=== PATIENT | male | born 1940 | race Caucasian/White ===

== ENCOUNTER 2016-08-21 11:56 | Inpatient (IN) | payer MEDICARE, BC ==
[2016-08-21] MEDS ORDERED: LABETALOL HCL 5 MG/ML VIAL IV ONE ×10 (12:16→15:30)
[2016-08-21 12:46] LABS: Mean Cell Volume 74.9 fl (78-100); Mean Corpuscular Hemoglobin 22.5 pg (27-31); Mean Corpuscular Hgb Conc 30.1 g/dl (32-36); Mean Platelet Volume 9.4 fl (6.0-9.5); Neutrophil # 2.9 K/mm3 (1.3-6.0); Neutrophil % 84.3 % (42-75.0); Platelet Count 138 K/mm3 (150-450); Red Blood Count 3.15 M/mm3 (4.7-6.0); Red Cell Distribution Width 16.7 % (11.5-14.0); White Blood Count 3.5 K/mm3 (4.0-10.5)
--- NOTE | 2016-08-21 12:50 | ERNOTE ---
Chest Pain/Cardiac HPI Chief Complaint: Palpitations Time Seen by Provider: 08/21/16 12:55 Source: patient, family Exam Limitations: no limitations Immunizations: IMMUNIZATION HX Immunizations Up to Date Yes History of Influenza Vaccine Yes Hx Pneumococcal Vaccination Yes Allergies/Adverse Reactions: Allergies No Known Allergies Allergy (Verified 08/21/16 18:38) Home Medications: HOME MEDICATIONS Aspirin [Aspir 81] 81 mg PO DAILY 04/16/12 [Last Taken 08/11/14 10:00 81mg] Pravastatin Sodium [Pravachol] 20 mg PO DAILY 04/16/12 [Last Taken 12/27/14] Terazosin HCl [Hytrin] 5 mg PO HS 04/16/12 [Last Taken 12/27/14] Hydroxychloroquine Sulfate [Plaquenil] 400 mg PO DAILY 09/03/14 [Last Taken ] Vitamin B Complex [B Complex] 500 mcg PO DAILY 09/03/14 [Last Taken 12/28/14] glipiZIDE [Glucotrol] 10 mg PO BID 09/03/14 [Last Taken Unknown] Finasteride [Proscar] 5 mg PO DAILY 12/29/14 [Last Taken Unknown] Losartan Potassium [Cozaar] 50 mg PO DAILY 12/29/14 [Last Taken Unknown] Ondansetron [Zofran Odt] 4 mg PO Q6H PRN #10 tab 03/12/15 [Last Taken Unknown] Prednisone [Deltasone] 20 mg PO DAILY 08/21/16 [Last Taken Unknown] Amiodarone HCl [Cordarone] 200 mg PO DAILY #30 tablet 08/23/16 [Last Taken Unknown] Folic Acid 1 mg PO DAILY tablet 08/23/16 [Last Taken Unknown] Methotrexate Sodium [Methotrexate] 10 mg PO Fr@0900 tablet 08/23/16 [Last Taken Unknown] Multivitamins [Multivitamin Stuart] 1 cap PO DAILY capsule 08/23/16 [Last Taken Unknown] Pantoprazole Sodium [Protonix] 40 mg PO BID@0700,2100 #60 tablet. 08/23/16 [ Last Taken Unknown] glipiZIDE [Glucotrol] 10 mg PO BIDAC tablet 08/23/16 [Last Taken Unknown] Narrative: Pt began having palpitations earlier today. Was unable to get relief with rest. Timing: constant, getting worse Severity/Quality: moderate, severe, pressure Location: central, back Chest Pain Radiation: jaw Activities at Onset: none Modifying Factors - Improves: Present: rest Modifying Factors - Worsens: Present: movement Associated Symptoms: Present: shortness of breath Review of Systems - Review of Systems Constitutional: Present: fatigue. Absent: recent illness EYE: Present: no symptoms reported ENT: Present: no symptoms reported Respiratory: Present: shortness of breath Cardiology: Present: chest pain, palpitations Gastrointestinal/Abdominal: Present: nausea. Absent: vomiting, abdominal pain Genitourinary: Present: no symptoms reported Musculoskeletal: Present: no symptoms reported Neurological: Present: no symptoms reported Endocrine: Present: no symptoms reported Hematologic/Lymphatic: Present: no symptoms reported Psych: Present: no symptoms reported - Patient's Past Medical History Patient History - Medical: Anemia, Diabetes Type 2, GERD, Osteoarthritis Patient History - Cardiac/Respiratory: Atrial Fibrillation, Hypertension, Hyperlipidemia Patient History - Cancer: Colon Patient History - Surgical Procedures: Cataracts, Colon Resection, Colonoscopy, EGD, Total Knee Replacement Patient History - Other: None - Family History Mother Family History - Medical: , Anemia, Diabetes Type 1 Family History - Cardiac/Respiratory: No pertinent hx Father Family History - Medical: Family History - Cardiac/Respiratory: CVA/Stroke - Social History Living Situations: home Abuse History: No History of abuse Psych History: No pertinent hx Smoking Status: Never smoker Alcohol Use: rarely Drug Use: none - Immunizations Immunizations Up to Date: Yes Hx Pneumococcal Vaccination: Yes History of Influenza Vaccine: Yes Physical Exam - Physical Exam General Appearance: Present: wd/wn, alert, mild distress Eye Exam: Normal inspection: bilateral Ears, Nose, Throat: Present: normal ENT inspection Neck: Present: normal inspection, nontender Respiratory: Present: normal breath sounds, lungs clear Cardiovascular/Chest: Present: tachycardia, irregularly irregular Gastrointestinal/Abdominal: Present: normal bowel sounds Back Exam: Present: normal inspection, no CVA tenderness Extremity Exam: Present: non-tender, no edema Neurological Exam: Present: alert, oriented, no motor/sensory deficits Skin Exam: Present: normal color, warm/dry Lymphatic Exam: Present: no adenopathy ED Progress - Results and Orders Patient's Lab Results:: I have reviewed the patient's lab results. Results and Orders: Laboratory Tests 08/21/16 08/21/16 08/21/16 12:35 12:35 12:35 WBC 3.5 L Hgb 7.1 L* Hct 23.6 L* Plt Count 138 L PT 11.9 H INR (Anticoag Therapy) 1.14 H PTT (Ponce) 23.1 L Sodium 137 Potassium 4.8 H Chloride 100 Carbon Dioxide 19.3 L Anion Gap 22.5 H BUN 31 H Creatinine 1.63 H Random Glucose 565 H* Calcium 9.9 Total Bilirubin 0.6 AST 17 ALT 19 Alkaline Phosphatase 75 Troponin I 0.031 Total Protein 6.4 Albumin 3.3 L - Vital Signs Patient's Vital Signs:: I have reviewed the patient's vital signs. Vital Signs: Vital Signs 08/21/16 08/21/16 12:12 12:38 Pulse Rate 177 H 158 H Respiratory 16 Rate Blood Pressure 161/73 O2 Sat by Pulse 99 Oximetry - EKG EKG: atrial fibrillation - with RVR. EKG read: Interp. by me - X-Ray X-Ray #1 X-Ray: chest Interpretation: Reviewed by me X-ray Comments: Hypoinflation of the lungs. lorditically positioned. - Progress/Reassessment Chief Complaint: Palpitations Progress:: Improved Progress Note-Subjective: 08/21/16 16:[address] Zaida Stauffer about Giorgio. He agrees to accept the patient he requests on order of 3 units PRBC's instead of the usual 2 units due to the difficulty of finding blood for him. Departure - Departure Clinical Impression: Atrial fibrillation Anemia Qualifiers: Anemia type: unspecified type Qualified Code(s): D64.9 - Anemia, unspecified Disposition: [facility] Condition: Fair
[2016-08-21 12:51] LABS: Hematocrit 23.6 % (42.0-52.0); Hemoglobin 7.1 gm/dL (13.5-18.0)
[2016-08-21 12:58] LABS: Prothrombin Time (Patient) 11.9 Seconds (9.4-11.4)
[2016-08-21 13:03] LABS: INR 1.14 INR (0.90-1.10); Partial Thrombolplastin Time 23.1 Seconds (24-32)
[2016-08-21 13:13] LABS: Albumin * 3.3 gm/dl (3.4-5.0); Anion Gap 22.5 mmol/L (6.8-13.8); Bilirubin, Total 0.6 mg/dL (0.0-1.1); Ca. Corrected For Albumin 10.1 mg/dL (8.4-10.2); Calcium * 9.9 mg/dL (7.9-10.9); Carbon Dioxide 19.3 mmol/L (24-32.6); Potassium 4.8 mmol/L (3.4-4.6); Total Protein 6.4 gm/dL (6.2-8.2)
[2016-08-21 13:14] LABS: Troponin I 0.031 ng/ml (0.00-0.10)
[2016-08-21] MEDS ORDERED: ASPIRIN 81 MG TAB.CHEW ONE (13:22)
[2016-08-21] MEDS ORDERED: NITROGLYCERIN 0.4 MG/TAB BTL SL ONE (13:23)
--- OUTSIDE RECORDS SUMMARY | 2016-08-21 13:37 | XMS REPORT | Continuity of Care Document ---
:1940 Author Organization [facility] ([facility]) Address [address] [place] [address] Phone [phone] Care Team Providers Name Role Phone Logan Lozano Primary Care Provider [phone] Source Comments This disclosure is being made pursuant to the Care Everywhere program, applicable federal and state laws, and may not contain all informaitonavailable regarding this patient.[facility] ([facility]) Active Allergies and Adverse Reactions No Known Allergies Current Medications Prescription Sig. Disp. Refills Start Date End Date Status omeprazole (PRILOSEC) 10 Take 20 mg by Active mg capsule mouth 2 times daily. terazosin (HYTRIN) 5 mg take 5 mg by Active capsule mouth at bedtime. pravastatin 20 mg tablet Take 20 mg by Active mouth daily. aspirin 81 mg EC tablet Take 81 mg by Active mouth daily. FERROUS SULFATE PO Take by Active mouth. finasteride (PROSCAR) 5 Take 10 mg by Active mg tablet mouth at bedtime. glipiZIDE 5 mg tablet Take 5 mg by Active mouth 2 times daily with meals. amiodarone 200 mg tablet Take 200 mg by Active mouth daily. losartan 50 mg tablet Take 50 mg by Active mouth daily folic acid 1 mg tablet Take 1 Tab (1 100 Tab 4 11/24/2014 Active mg total) by mouth daily multivitamin tablet Take 1 tablet Active by mouth daily methotrexate 2.5 mg Take 8 tablets 32 tablet 6 07/19/2015 Active tablet (20 mg total) by mouth every week. hydroxychloroquine 200 mg Take 2 tablets 60 tablet 11 07/19/2015 Active tablet (400 mg total) by mouth daily. predniSONE 5 mg tablet 20 mg daily 100 tablet 1 06/21/2016 Active for one week, decrease by 2.5 mg weekly, stay at 10 mg daily. Active Problems Problem Noted Date Colon cancer 09/05/2012 Overview: Scribed by Maida Tellez for Da Bansal MD. Other acute postoperative pain 08/07/2012 BPH (benign prostatic hyperplasia) 08/07/2012 HLD (hyperlipidemia) 08/07/2012 T2DM (type 2 diabetes mellitus) 08/07/2012 Reflux 08/07/2012 Anemia of chronic disease 08/07/2012 Anemia due to acute blood loss 08/07/2012 Degenerative arthritis of spine 02/04/2010 Osteoarthritis 02/04/2010 Rheumatoid arthritis(714.0) 02/03/2010 Overview: Dx 1997 RX history: (no trial of biologicals-- unable to afford). sulfasalazine - years, dc'ed in 03/2015 to see if affected low hemoglobin, it appeared did not affect hemoglobin, but he felt better Methotrexate - (lab order renewed for 2012) hydroxychloroquine - 2007 (dc'd for persistent colon bleeding), restarted in 2013 (last eye exam 2014) leflunomide 08/2008 - 07/2011 since did well after on remicade. prednisone off 04/2011. remicade 03/2011 - 08/2013, dc'ed for surgery for colon cancer. 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 08/20/2007: R hemicolectomy with clean margins and 13 negative nodes Complicated by hx of recurrent anemia from bleeding at site of colon anastomosis. Anemia due to blood loss, recurrent 02/03/2010 Overview: (See hx of colon cancer) Benign prostatic hypertrophy 02/03/2010 Encounter for long-term (current) use of steroids 10/07/2006 Resolved Problems Problem Noted Date Resolved Date Benign neoplasm of colon 08/06/2012 08/07/2012 Most Recent Encounters Date Type Specialty Providers Description 08/18/2016 Office Visit Pathology Edilia Wu, Chief Comp: Patient MD Reported Reason For Lab Services, Pfp Visit 08/18/2016 Office Visit Med Rheumatology Default, Other Billg Dx: Seropositive - Defo rheumatoid arthritis of Edilia Wu, multiple sites (Primary MD Dx) Argenis Morgan PA-C 08/08/2016 Telephone Med Rheumatology Argenis Morgan PA-C 08/08/2016 Telephone Med Rheumatology Argenis Morgan PA-C Chief Comp: Lab Results 06/21/2016 Telephone Med Rheumatology Edilia Wu Dx: Seropositive MD rheumatoid arthritis of multiple sites (Primary Dx) Immunizations Name Dates Previously Given Next Due Influenza, high dose 02/09/2016,04/06/2015 Influenza, unspecified 04/04/2014,03/18/2013,03/05/2012,04/04/2009,2007,04/02/2006 Novel Influenza H1N1 05/20/2009 Pneumococcal, unspecified 03/04/2012,03/18/2003 Zoster, live (Zostavax) 02/09/2016 Social History Tobacco Use Types Packs/Day Years Used Date Former Smoker 1 Quit: 06/04/1984 Smokeless Tobacco: Never Used Tobacco Cessation:Counseling Given: Yes Comments: Alcohol Use Drinks/Week oz/Week Comments Yes 1 Cans of beer 0.5 Last Filed Vital Signs Vital Sign Reading Time Taken Blood Pressure 144/64 08/18/2016 11:06 AM CDT Pulse 68 08/18/2016 11:06 AM CDT Temperature 36.9 C (98.4 F) 08/18/2016 11:06 AM CDT Respiratory Rate 20 08/24/2014 12:46 PM CDT Height 1.8 m (5' 10.87") 08/18/2016 11:06 AM CDT Weight 95.2 kg (209 lb 14.1 oz) 08/18/2016 11:06 AM CDT Body Mass Index 29.38 08/18/2016 11:06 AM CDT Oxygen Saturation 96% 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 Plan of Care Date Type Specialty Providers Description 11/14/2016 Appointment Med Rheumatology Edilia Wu MD [address] [place] [address] [phone] (Fax) Chief Comp: Patient EddieArgenis PA-C [address] [place] [address] [phone] (Fax) Reported Reason For Visit 02/23/2017 Appointment Med Rheumatology Edilia Wu MD Chief Comp: Patient [address] [facility] [place] [address] Visit [phone] (Fax) Health Maintenance Due Date Last Done Comments Hepatitis B Vaccine (1 of 3 1940 - Primary Series) Tdap Vaccine 10/28/1950 DIABETIC: Cholesterol 10/28/1957 Diabetic: Hdl 10/28/1957 DIABETIC: Hemoglobin A1C 10/28/1957 Diabetic: Ldl 10/28/1957 DIABETIC: Microalbumin 10/28/1957 DIABETIC: Triglycerides 10/28/1957 Td Vaccine 10/28/1957 Pneumococcal Vaccine (1 of 2 10/28/2004 - PCV13) DIABETIC: Foot Exam 12/23/2012 DIABETIC: Retinal Eye Exam 12/23/2012 Colonoscopy 06/20/2022 06/20/2012 Zoster Vaccine Completed 02/09/2016 Influenza Vaccine: Seasonal Addressed 03/31/2016 (Completed Overridden with the outside this hospital intention of not or clinic), completing the topic, 02/09/2016, 04/06/2015 Additional history exists Results from Last 3 Months DIFFERENTIAL (08/18/2016 12:44 PM) Component Value Range % Neutrophils-Auto Diff 83.6 % Neutrophils-Auto Diff 2690 5400-6196 /MM3 % Lymphocytes-Auto Diff 9.6 % Lymphocytes-Auto Diff 310(L) 875-3300 /MM3 % Monocytes-Auto Diff 6.2 % Monocytes-Auto Diff 200 130-860 /MM3 % Eosinophils-Auto Diff 0.0 % Eosinophils-Auto Diff 0(L) 40-390 /MM3 % Basophils 0.3 % Basophils-Auto Diff 10 10-136 /MM3 % Immature Granulocytes-Auto Diff 0.3 % Immature Granulocytes-Auto Diff 10 /MM3 Specimen Whole Blood CBC (COMPLETE BLOOD COUNT) (08/18/2016 12:44 PM) Component Value Range WBC Count 3.2(L) 3.7-10.5 K/MM3 RBC Count 3.10(L) 4.50-6.20 M/MM3 Hemoglobin 7.1(L) 13.2-17.7 g/dL Hematocrit 23(L) 40-52 % MCV (Mean Corpuscular Volume) 75(L) 82-99 FL MCH (Mean Corpuscular Hemoglobin) 23(L) 25-35 PG MCHC (Mean Corpuscular Hemoglobin Concentration) 31(L) 32-36 % Platelet Count 127(L) 150-400 K/MM3 MPV (Mean Platelet Volume) 9.3(L) 9.4-12.3 FL RBC Dist Width-STD 45.0(H) 35.1-43.9 FL RBC Distrib Width 16.7(H) 9.0-14.5 % Nucleated RBC 0 /100 WBC Specimen Whole Blood FERRITIN (08/18/2016 12:44 PM) Component Value Range Ferritin 23.8(L) 30.0-400.0 ng/mL Specimen Blood VITAMIN B12 (08/18/2016 12:44 PM) Component Value Range Vitamin B12 335Comment: 211-946 pg/mL New analytical immunoassay with different reference range instituted 04/29/2013 AT 830AM Normal 211 - 946 pg/mL [id number] - 210 pg/mL Deficient<150pg/mL Specimen Blood IRON PANEL (IRON, TRANSFERRIN, TIBC AND % SATURATION) (08/18/2016 12:44 PM) Component Value Range Iron, Blood 22(L) 59-158 g/dL Transferrin 278 200-360 mg/dL Iron % Saturation 6(L)Comment: 20-50 % Iron % saturation is a calculated parameter derived from the iron and transferrin plasma concentrations. Iron % saturation is not reliable when there are high ferritin concentrations greater than 1,200 ng/mL. TIBC (Total Iron Binding Capacity) 398Comment: 250-425 g/dL TIBC is a calculated parameter derived from the transferrin plasma concentration. Specimen Blood HEPATITIS B CORE ANTIBODY(G&M) (08/18/2016 12:44 PM) Component Value Range Hep B Core Abs Total (IgG & IgM) Negative Negative Specimen Blood HEPATITIS C ANTIBODY (08/18/2016 12:44 PM) Component Value Range Hepatitis C Virus Antibody Negative Negative Specimen Blood HEPATITIS B SURFACE ANTIGEN (08/18/2016 12:44 PM) Component Value Range Hep B Surface Antigen Negative Negative Specimen Blood CBC WITH DIFFERENTIAL (08/18/2016 12:44 PM) Specimen Whole Blood Narrative The following orders were created for panel order CBC WITH DIFFERENTIAL. Procedure Abnormality Status --------- ------ CBC (COMPLETE BLOOD COUNT)[[id number]] AbnormalFinal result DIFFERENTIAL[[id number]] AbnormalFinal result Please view results for these tests on the individual orders. CREATININE (08/18/2016 12:44 PM) Component Value Range Creatinine 1.3(H)Comment: 0.6-1.2 mg/dL Creatinine switched to enzymatic method on 10/11/2010.GFR equation switched to IDMS-traceable MDRD equation on 10/11/2010. Calculated GFR values are not valid in clinical settings where serum creatinine is changing. Calculated GFR 54(L) >60 mL/min/1.73 m2 Specimen Blood IGM (08/18/2016 12:44 PM) Component Value Range IgM 99 40-230 mg/dL Specimen Blood IGG (08/18/2016 12:44 PM) Component Value Range IgG 809 391-7921 mg/dL Specimen Blood ERYTHROCYTE SEDIMENTATION RATE (08/18/2016 12:44 PM) Component Value Range ESR (Erythrocyte Sedimentation Rate) 37(H) 0-15 mm/Hr Specimen Whole Blood C-REACTIVE PROTEIN (08/18/2016 12:44 PM) Component Value Range CRP (C-Reactive Protein) 0.9(H) <=0.5 mg/dL Specimen Blood BODY FLUID CELL COUNT AND DIFF (08/18/2016 12:42 PM) Component Value Range Body Fluid Type Synovial fluid Clarity, Other Turbid(A) Clear Color, Other Yellow None, Yellow, Pale Yellow Total Nucleated Count, Other 96332 /MM3 RBC Count, Other 9000 /MM3 Neutrophils, Other 9014 /MM3 Lymphocytes, Other 685 /MM3 Mononucleated Cells, Other 1712 /MM3 % Neutrophils, Other 79.0 % % Lymphocytes, Other 6.0 % %BF Mononucleated Cells 15.0 % Specimen Other EXTERNAL MISCELLANEOUS LAB (08/08/2016)Only the most recent of2 resultswithin the time period is included. Component Value Range Ext WBC Count 3.0(A) 4.0-10.5 K/MM3 Ext Hemoglobin 7.3(A) 13.5-18.0 G/DL Ext MCV (Mean Corpuscular Volume) 73.2(A) 78-100 FL Ext Platelet Count 115(A) 150-450 K/MM3 Ext Creatinine 1.54(A) 0.4-1.4 MG/DL Ext Albumin 3.2(A) 3.4-5.0 G/DL Ext ALT 18(A) 19-67 U/L Ext AST 13 0-48 U/L
[2016-08-21] MEDS ORDERED: diphenhydrAMINE HCL 50 MG/ML VIAL IV ONE (13:41)
[2016-08-21] MEDS ORDERED: FUROSEMIDE 10 MG/ML VIAL IV ONE (13:41)
[2016-08-21] MEDS ORDERED: ACETAMINOPHEN 325 MG TABLET PO ONE (13:41)
[2016-08-21] MEDS ORDERED: FUROSEMIDE 10 MG/ML VIAL ONE (13:55)
[2016-08-21] MEDS ORDERED: diphenhydrAMINE HCL 50 MG/ML VIAL ONE (13:55)
[2016-08-21] MEDS ORDERED: ACETAMINOPHEN 325 MG TABLET ONE (13:56)
--- OUTSIDE RECORDS SUMMARY | 2016-08-21 16:15 | XMS REPORT | Continuity of Care Document ---
:1940 Author Organization [facility] ([facility]) Address [address] [place] [address] Phone [phone] Care Team Providers Name Role Phone Logan Lozano Primary Care Provider [phone] Source Comments This disclosure is being made pursuant to the Care Everywhere program, applicable federal and state laws, and may not contain all informaitonavailable regarding this patient.[facility] ([facility]) Active Allergies and Adverse Reactions No Known [...] Recent Encounters Date Type Specialty Providers Description 08/21/2016 Telephone Internal Medicine - Rosalia Marsh, 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 08/18/2016 Office Visit Pathology Edilia Wu Chief Comp: Patient MD Teagan Reported Reason For Lab Services, Pfp Visit 08/18/2016 Office Visit Med Rheumatology Default, Other Dx: Seropositive Billg - Defo rheumatoid arthritis Edilia Wu of multiple sites MD Teagan (Primary Dx) Argenis Morgan PA-C 08/08/2016 Telephone Med Rheumatology Argenis Morgan PA-C 08/08/2016 Telephone Med Rheumatology Argenis Morgan PA-C Chief Comp: Lab Results 06/21/2016 Telephone Med Rheumatology Edilia Wu Dx: Remedios Candelaria MD rheumatoid arthritis of multiple sites (Primary [...] CDT Oxygen Saturation 96% 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 Date Type Specialty Providers Description 11/14/2016 Appointment Med Rheumatology Edilia Wu MD [address] [place] [address] [phone] (Fax) Chief Comp: Patient Eddie, RAKEL More [address] [place] [address] [phone] (Fax) Reported Reason For Visit 02/23/2017 Appointment Med Rheumatology Edilia Wu MD Chief Comp: Patient [address] [place] [address] Visit [phone] (Fax) Health Maintenance Due Date Last Done [...] Neutrophils-Auto Diff 83.6 % Neutrophils-Auto Diff 2690 1228-6838 /MM3 % Lymphocytes-Auto Diff 9.6 % Lymphocytes-Auto [...] AT 830AM Normal 211 - 946 pg/mL [id number] - 210 pg/mL Deficient<150pg/mL Specimen Blood IRON [...] Abnormality Status --------- ------ CBC (COMPLETE BLOOD COUNT)[[id number]] AbnormalFinal result DIFFERENTIAL[[id number]] AbnormalFinal result Please view results for these [...] (08/18/2016 12:44 PM) Component Value Range IgG 597 133-1442 mg/dL Specimen Blood ERYTHROCYTE SEDIMENTATION RATE (08/18/2016 [...] Yellow, Pale Yellow Total Nucleated Count, Other 55504 /MM3 RBC Count, Other 9000 /MM3 Neutrophils, [...]
[2016-08-21] MEDS ORDERED: ONDANSETRON 4 MG TAB.RAPDIS PO PRN (17:23)
[2016-08-21] MEDS ORDERED: LABETALOL HCL 5 MG/ML VIAL IV PRN (17:26)
[2016-08-21] MEDS: FOLIC ACID 1 MG TABLET PO SCH (17:48)
[2016-08-21] MEDS: glipiZIDE 10 MG TABLET PO SCH (17:49)
--- NOTE | 2016-08-21 20:07 | HP ---
Chief Complaint - Chief Complaint Date of Service: 08/21/16 Time of Service: 19:56 Chief Complaint: Fast heart rate History of Present Illness: Chronic anemia, soon to begin going to the [facility] anemia clinic. Chronic arthritis, followed by rheumatology at the [facility]. At 11:30 AM today, heart rate speeded up while preparing his 's pills. He laid down, by his heart rate got faster. He then developed chest pressure on the right side of his chest, right shoulder girdle, right upper back, right neck and right ear. This persisted, and was worsened by moving around. It was associated with SOB. He therefore drove himself to the [facility] ER, where he was found to be in a fib with RVR, rate of 160. His hgb was 7.1, but this was about the same as 3 days ago. While in the ER, he was given multiple doses of labetalol IV, and while receiving this, his discomfort went away, lasting a total time of about 1 hour. We are looking for blood to transfuse, but he has antibodies that makes it somewhat difficult. - Patient's Past Medical History Patient History - Medical: Anemia, Diabetes Type 2, GERD, Osteoarthritis Patient History - Cardiac/Respiratory: Atrial Fibrillation, Hypertension, Hyperlipidemia Patient History - Cancer: Colon Patient History - Surgical Procedures: Cataracts, Colon Resection, Colonoscopy, EGD, Total Knee Replacement Patient History - Other: None - Family History Mother Family History - Medical: , Anemia, Diabetes Type 1 Family History - Cardiac/Respiratory: No pertinent hx Family History - Cancer: No pertinent family hx Father Family History - Medical: Family History - Cardiac/Respiratory: CVA/Stroke Family History - Cancer: No pertinent family hx - Social History Living Situations: alone Abuse History: No History of abuse Psych History: No pertinent hx Smoking Status: Former smoker Have you smoked in the past 12 months: No Do you dip or chew tobacco: No Patient requests Smoking Cessation Consult: No Initiate information on Smoking Cessation: No Alcohol Use: rarely Drug Use: none - Immunizations Immunizations Up to Date: Yes Hx Pneumococcal Vaccination: Yes History of Influenza Vaccine: Yes Review Of Systems (GEN) - Review of Systems Generalized/Overall Review: Present: Weakness, Malaise EENTM: Present: No Symptoms Reported Respiratory: Present: Shortness of Breath Cardiac: Present: Chest Pain, Palpitations Abdominal: Present: No Symptoms Reported Genitourinary: Present: No Symptoms Reported Musculoskeletal: Present: No Symptoms Reported Neurological: Present: No Symptoms Reported Skin: Present: No Symptoms Reported Endocrine: Present: No Symptoms Reported Misc: All systems neg except as marked Immunizations: IMMUNIZATION HX Immunizations Up to Date Yes History of Influenza Vaccine Yes Hx Pneumococcal Vaccination Yes Allergies/Adverse Reactions: Allergies Allergy/AdvReac Type Severity Reaction Status Date / Time No Known Allergies Allergy Verified 08/21/16 18:38 Home Medications: HOME MEDICATIONS Aspirin [Aspir 81] 81 mg PO DAILY 04/16/12 [Last Taken 08/11/14 10:00 81mg] Pravastatin Sodium [Pravachol] 20 mg PO DAILY 04/16/12 [Last Taken 12/27/14] Terazosin HCl [Hytrin] 5 mg PO HS 04/16/12 [Last Taken 12/27/14] Hydroxychloroquine Sulfate [Plaquenil] 400 mg PO DAILY 09/03/14 [Last Taken ] Vitamin B Complex [B Complex] 500 mcg PO DAILY 09/03/14 [Last Taken 12/28/14] glipiZIDE [Glucotrol] 10 mg PO BID 09/03/14 [Last Taken Unknown] Finasteride [Proscar] 5 mg PO DAILY 12/29/14 [Last Taken Unknown] Losartan Potassium [Cozaar] 50 mg PO DAILY 12/29/14 [Last Taken Unknown] Ondansetron [Zofran Odt] 4 mg PO Q6H PRN #10 tab 03/12/15 [Last Taken Unknown] Prednisone [Deltasone] 20 mg PO DAILY 08/21/16 [Last Taken Unknown] Exam - Exam Vital Signs: Vital Signs - Last Taken Selected Entries 08/21/16 08/21/16 08/21/16 15:31 17:00 17:09 Pulse Rate 136 H 121 H 86 Respiratory 16 Rate Blood Pressure 96/69 O2 Sat by Pulse 100 Oximetry Oxygen Delivery Nasal Cannula Method Oxygen Flow 2 Rate 08/21/16 19:38 Pulse Rate 145 H Respiratory Rate Blood Pressure 146/96 O2 Sat by Pulse Oximetry Oxygen Delivery Method Oxygen Flow Rate Constitutional: Present: Alert, Oriented x3, Cooperative, Well developed, Well nourished, No distress ENT Exam: Present: normal ENT inspection, hearing grossly normal Eye Exam: bilateral eye: normal inspection, PERRL, EOMI Neck: Present: normal inspection Back Exam: Present: normal inspection, no CVA tenderness Respiratory: Present: lungs clear, no respiratory distress Cardiovascular/Chest: Present: no murmur, tachycardia, irregularly irregular Abdomen: Present: Normal bowel sounds, soft, nontender, nondistended, no rebound tenderness, no hepatospenomegaly, no masses Extremity: Present: non-tender, normal inspection, no pedal edema Skin Exam: Present: normal color, warm/dry, no cyanosis Neurologic: Present: alert, oriented x 3 Appearance: Present: appropriate appearance, appropriate insight, neat, no memory impairment Eye contact: Present: cooperative, good eye contact, normal speech Thoughts: Present: normal thought pattern Diagnostic Studies: Laboratory Results WBC 3.5 K/mm3 (4.0-10.5) L 08/21/16 12:35 RBC 3.15 M/mm3 (4.7-6.0) L 08/21/16 12:35 Hgb 7.1 gm/dL (13.5-18.0) L* 08/21/16 12:35 Hct 23.6 % (42.0-52.0) L* 08/21/16 12:35 MCV 74.9 fl (78-100) L 08/21/16 12:35 MCH 22.5 pg (27-31) L 08/21/16 12:35 MCHC 30.1 g/dl (32-36) L 08/21/16 12:35 RDW 16.7 % (11.5-14.0) H 08/21/16 12:35 Plt Count 138 K/mm3 (150-450) L 08/21/16 12:35 MPV 9.4 fl (6.0-9.5) 08/21/16 12:35 Immature Gran % (Auto) 0.60 % (0.001-0.429) H 08/21/16 12:35 Immature Gran # (Auto) 0.02 K/mm3 (0.000-0.0310) 08/21/16 12:35 Neutrophils % 84.3 % (42-75.0) H 08/21/16 12:35 Lymphocytes % 8.7 % (20-51) L 08/21/16 12:35 Monocytes % 6.4 % (0.0-9) 08/21/16 12:35 Eosinophils % 0.0 % (0.0-3.0) 08/21/16 12:35 Basophils % 0.0 % (0.0-1.0) 08/21/16 12:35 Nucleated RBC % 0.0 k/mm3 (0-1) 08/21/16 12:35 Neutrophils # 2.9 K/mm3 (1.3-6.0) 08/21/16 12:35 Lymphocytes # 0.3 k/mm3 (1.5-3.5) L 08/21/16 12:35 Monocytes # 0.2 k/mm3 (0.0-1.0) 08/21/16 12:35 Eosinophils # 0.0 k/mm3 (0.0-0.7) 08/21/16 12:35 Absolute Basophils 0.0 k/mm3 (0.0-0.1) 08/21/16 12:35 PT 11.9 Seconds (9.4-11.4) H 08/21/16 12:35 INR (Anticoag Therapy) 1.14 INR (0.90-1.10) H 08/21/16 12:35 PTT ([place]) 23.1 Seconds (24-32) L 08/21/16 12:35 Sodium 137 mmol/L (132-142) 08/21/16 12:35 Plasma Sodium 144 mmol/L (130-142) H 08/21/16 12:35 Potassium 4.8 mmol/L (3.4-4.6) H 08/21/16 12:35 Chloride 100 mmol/L (97-106) 08/21/16 12:35 Carbon Dioxide 19.3 mmol/L (24-32.6) L 08/21/16 12:35 Anion Gap 22.5 mmol/L (6.8-13.8) H 08/21/16 12:35 BUN 31 mg/dL (6-23) H 08/21/16 12:35 Creatinine 1.63 mg/dL (0.4-1.4) H 08/21/16 12:35 Est GFR (Non-Af Amer) 44 mL/min (60-130) L 08/21/16 12:35 BUN/Creatinine Ratio 19.0 (9.0-21.6) 08/21/16 12:35 Random Glucose 565 mg/dL (70-110) H* 08/21/16 12:35 Calcium 9.9 mg/dL (7.9-10.9) 08/21/16 12:35 Calcium Adj for Albumin 10.1 mg/dL (8.4-10.2) 08/21/16 12:35 Total Bilirubin 0.6 mg/dL (0.0-1.1) 08/21/16 12:35 AST 17 U/L (0-48) 08/21/16 12:35 ALT 19 U/L (19-67) 08/21/16 12:35 Alkaline Phosphatase 75 U/L (50-170) 08/21/16 12:35 Troponin I 0.031 ng/ml (0.00-0.10) 08/21/16 12:35 Total Protein 6.4 gm/dL (6.2-8.2) 08/21/16 12:35 Albumin 3.3 gm/dl (3.4-5.0) L 08/21/16 12:35 Blood Type O Positive 08/21/16 12:35 Antibody Screen Positive 08/21/16 12:35 Crossmatch See Detail 08/21/16 12:35 Assessment/Plan - Narrative Narrative: Hold aspirin (also on prednisone for RA). Transfuse. Labetalol as needed. Labs in AM. Increase amiodarone. - Assessment/Plan (1) Angina at rest Problem: Acute (2) Rheumatoid arthritis Problem: Chronic Qualifiers: Rheumatoid arthritis location: unspecified site (3) GI bleeding Problem: Acute Qualifiers: GI bleed type/associated pathology: unspecified gastrointestinal hemorrhage type Qualified Code(s): K92.2 - Gastrointestinal hemorrhage, unspecified (4) Anemia Problem: Acute Qualifiers: Anemia type: unspecified type Qualified Code(s): D64.9 - Anemia, unspecified (5) Atrial fibrillation Problem: Acute Qualifiers: Atrial fibrillation type: paroxysmal Qualified Code(s): I48.0 - Paroxysmal atrial fibrillation
[2016-08-21] MEDS: SIMVASTATIN 10 MG TABLET PO SCH (20:34)
[2016-08-21] MEDS: FAMOTIDINE 20 MG TABLET PO SCH (20:34)
[2016-08-21] MEDS: TERAZOSIN HCL 5 MG CAPSULE PO SCH (20:35)
[2016-08-21] MEDS: PANTOPRAZOLE SODIUM 40 MG TABLET.EC PO SCH (20:35)
[2016-08-21] MEDS: SODIUM BICARBONATE 650 MG TABLET PO SCH (20:35)
[2016-08-22] MEDS ORDERED: diphenhydrAMINE HCL 50 MG/ML VIAL IV ONE (01:00)
[2016-08-22] MEDS ORDERED: FUROSEMIDE 10 MG/ML VIAL IV ONE (03:00)
[2016-08-22] MEDS ORDERED: FUROSEMIDE 10 MG/ML VIAL ONE (05:15)
[2016-08-22 06:31] LABS: Hematocrit 24.9 % (42.0-52.0); Mean Cell Volume 77.3 fl (78-100); Mean Corpuscular Hemoglobin 23.3 pg (27-31); Mean Corpuscular Hgb Conc 30.1 g/dl (32-36); Mean Platelet Volume 9.8 fl (6.0-9.5); Neutrophil # 2.7 K/mm3 (1.3-6.0); Neutrophil % 74.6 % (42-75.0); Platelet Count 130 K/mm3 (150-450); Red Blood Count 3.22 M/mm3 (4.7-6.0); Red Cell Distribution Width 18.1 % (11.5-14.0); White Blood Count 3.7 K/mm3 (4.0-10.5)
[2016-08-22 06:35] LABS: Hemoglobin 7.5 gm/dL (13.5-18.0)
[2016-08-22 06:51] LABS: Anion Gap 16.3 mmol/L (6.8-13.8); BUN/Creatinine Ratio 17.6 (9.0-21.6); Calcium * 9.3 mg/dL (7.9-10.9); Carbon Dioxide 24.6 mmol/L (24-32.6); Estimated Creat Clear 43.8; Potassium 3.9 mmol/L (3.4-4.6)
[2016-08-22 06:55] LABS: Troponin I 0.363 ng/ml (0.00-0.10)
[2016-08-22] MEDS: PANTOPRAZOLE SODIUM 40 MG TABLET.EC PO SCH ×2 (06:57→21:53)
[2016-08-22] MEDS: glipiZIDE 10 MG TABLET PO SCH ×2 (06:57→16:09)
--- NOTE | 2016-08-22 08:04 | PN ---
Subjective - Date and Time Seen Date: 08/22/16 Time: 07:20 Subjective Narrative: Converted to sinus rhythm this morning. Feels better. An hour or two ago had thoracic back pain which was sharp, and RUQ abdominal pain which was dull. This lasted about an hour, NOS, went away when he got up to go to the bathroom, and which he attributes to his back. Objective - Review of Systems Generalized/Overall Review: Reports: No Symptoms Reported EENTM: Reports: No Symptoms Reported Respiratory: Reports: No Symptoms Reported Cardiac: Reports: No Symptoms Reported Abdominal: Reports: No Symptoms Reported Genitourinary Symptoms: Reports: No Symptoms Reported Musculoskeletal Complaints: Reports: No Symptoms Reported Neurological: Reports: No Symptoms Reported Skin: Reports: No Symptoms Reported Endocrine: Reports: No Symptoms Reported Misc: All systems neg except as marked - Vitals Vitals: Last Vital Signs Selected Entries 08/22/16 06:44 Temperature 36.6 C Temperature Oral Source Pulse Rate 53 L Respiratory 16 Rate Respiratory Normal Depth Blood Pressure 143/50 Blood Pressure Supine Position O2 Sat by Pulse 100 Oximetry - Abnormal Lab Findings Abnormal Lab Findings: Abnormal Lab Results 08/22/16 08/22/16 Range/Units 06:24 06:24 WBC 3.7 L (4.0-10.5) K/mm3 RBC 3.22 L (4.7-6.0) M/mm3 Hgb 7.5 L* (13.5-18.0) gm/dL Hct 24.9 L (42.0-52.0) % MCV 77.3 L (78-100) fl MCH 23.3 L (27-31) pg MCHC 30.1 L (32-36) g/dl RDW 18.1 H (11.5-14.0) % Plt Count 130 L (150-450) K/mm3 MPV 9.8 H (6.0-9.5) fl Immature Gran % (Auto) 0.50 H (0.001-0.429) % Lymphocytes % 17.0 L (20-51) % Lymphocytes # 0.6 L (1.5-3.5) k/mm3 Anion Gap 16.3 H (6.8-13.8) mmol/L BUN 26 H (6-23) mg/dL Creatinine 1.48 H (0.4-1.4) mg/dL Est GFR (Non-Af Amer) 49 L (60-130) mL/min Random Glucose 184 H D (70-110) mg/dL Troponin I 0.363 H* (0.00-0.10) ng/ml - Exam Exam Narrative: I reviewed his EKGs from this morning, both sinus rhythm, both non acute and non diagnostic. Constitutional: Present: Alert, Oriented x3, Cooperative, Well developed, Well nourished, No distress ENT Exam: Present: normal ENT inspection, hearing grossly normal Neck: Present: normal inspection Respiratory: Present: lungs clear, no respiratory distress Cardiovascular/Chest: Present: regular rate, rhythm, no murmur Abdomen: Present: Normal bowel sounds, soft, nontender, nondistended, no rebound tenderness, no hepatospenomegaly, no masses Extremity: Present: normal inspection, no pedal edema Skin Exam: Present: normal color, warm/dry, no cyanosis Neurologic: Present: alert, oriented x 3 Appearance: Present: appropriate appearance, appropriate insight, neat, no memory impairment Eye contact: Present: cooperative, good eye contact, normal speech Thoughts: Present: normal thought pattern Assessment/Plan Plan Narrative: Has had one unit of blood so far, will give two more. We had increased his amiodarone from 100 mg daily to 100 mg tid, we will now decrease to 200 mg daily , which will hopefully help keep him in sinus rhythm. Although his troponin is elevated, it isn't very high and his EKGs are not diagnostic. We will repeat these tomorrow AM, and he may be able to go home then. We will taper his O2 today. - Problems/Diagnosis (1) Angina at rest Problem: Resolved (2) Rheumatoid arthritis Problem: Chronic Qualifiers: Rheumatoid arthritis location: unspecified site (3) GI bleeding Problem: Chronic Qualifiers: GI bleed type/associated pathology: unspecified gastrointestinal hemorrhage type Qualified Code(s): K92.2 - Gastrointestinal hemorrhage, unspecified (4) Anemia Problem: Chronic Qualifiers: Anemia type: unspecified type Qualified Code(s): D64.9 - Anemia, unspecified (5) Atrial fibrillation Problem: Resolved Qualifiers: Atrial fibrillation type: paroxysmal Qualified Code(s): I48.0 - Paroxysmal atrial fibrillation (6) Elevated troponin Problem: Acute
[2016-08-22] MEDS: FINASTERIDE 5 MG TABLET PO SCH (08:47)
[2016-08-22] MEDS: MULTIVITAMINS 1 CAP CAPSULE PO SCH (08:48)
[2016-08-22] MEDS: SODIUM BICARBONATE 650 MG TABLET PO SCH ×2 (08:48→21:53)
[2016-08-22] MEDS: AMIODARONE HCL 200 MG TABLET PO SCH (08:48)
[2016-08-22] MEDS: HYDROXYCHLOROQUINE SULFATE 200 MG TABLET PO SCH (08:48)
[2016-08-22] MEDS: FOLIC ACID 1 MG TABLET PO SCH (08:48)
[2016-08-22] MEDS: LOSARTAN POTASSIUM 50 MG TABLET PO SCH (08:48)
[2016-08-22] MEDS: VITAMIN B COMP W-C 1 TAB TABLET PO SCH (08:48)
[2016-08-22] MEDS: predniSONE 20 MG TABLET PO SCH (08:53)
[2016-08-22] MEDS ORDERED: AMIODARONE HCL 200 MG TABLET PO SCH (09:00)
[2016-08-22] MEDS: INSULIN REGULAR, HUMAN 100 UNITS/ML VIAL SC SCH ×2 (17:06→21:56)
[2016-08-22] MEDS: FAMOTIDINE 20 MG TABLET PO SCH (21:53)
[2016-08-22] MEDS: SIMVASTATIN 10 MG TABLET PO SCH (21:53)
[2016-08-22] MEDS: TERAZOSIN HCL 5 MG CAPSULE PO SCH (21:53)
[2016-08-23 06:15] LABS: Hematocrit 30.6 % (42.0-52.0); Hemoglobin 9.6 gm/dL (13.5-18.0); Mean Cell Volume 77.5 fl (78-100); Mean Corpuscular Hemoglobin 24.3 pg (27-31); Mean Corpuscular Hgb Conc 31.4 g/dl (32-36); Neutrophil # 2.8 K/mm3 (1.3-6.0); Neutrophil % 76.8 % (42-75.0); Platelet Count 117 K/mm3 (150-450); Red Blood Count 3.95 M/mm3 (4.7-6.0); Red Cell Distribution Width 17.8 % (11.5-14.0); White Blood Count 3.7 K/mm3 (4.0-10.5)
[2016-08-23 06:35] LABS: Anion Gap 15.2 mmol/L (6.8-13.8); Calcium * 8.6 mg/dL (7.9-10.9); Carbon Dioxide 25.3 mmol/L (24-32.6); Estimated Creat Clear 50.3; Potassium 3.5 mmol/L (3.4-4.6)
[2016-08-23 06:43] LABS: BUN/Creatinine Ratio 19.4 (9.0-21.6)
[2016-08-23 06:47] LABS: Troponin I 0.113 ng/ml (0.00-0.10)
[2016-08-23] MEDS: INSULIN REGULAR, HUMAN 100 UNITS/ML VIAL SC SCH (07:11)
[2016-08-23] MEDS: PANTOPRAZOLE SODIUM 40 MG TABLET.EC PO SCH (07:11)
[2016-08-23] MEDS: glipiZIDE 10 MG TABLET PO SCH (07:12)
[2016-08-23] MEDS: AMIODARONE HCL 200 MG TABLET PO SCH (09:10)
[2016-08-23] MEDS: LOSARTAN POTASSIUM 50 MG TABLET PO SCH (09:10)
[2016-08-23] MEDS: MULTIVITAMINS 1 CAP CAPSULE PO SCH (09:11)
[2016-08-23] MEDS: FOLIC ACID 1 MG TABLET PO SCH (09:11)
[2016-08-23] MEDS: SODIUM BICARBONATE 650 MG TABLET PO SCH (09:12)
[2016-08-23] MEDS: predniSONE 20 MG TABLET PO SCH (09:12)
[2016-08-23] MEDS: HYDROXYCHLOROQUINE SULFATE 200 MG TABLET PO SCH (09:12)
[2016-08-23] MEDS: FINASTERIDE 5 MG TABLET PO SCH (09:12)
[2016-08-23] MEDS: VITAMIN B COMP W-C 1 TAB TABLET PO SCH (09:13)
--- NOTE | 2016-08-23 10:06 | DS ---
<Logan Lopez - Last Filed: 09/11/16 08:14> (1) Angina at rest Problem: Resolved (2) Rheumatoid arthritis Problem: Chronic QualifierTitle: Rheumatoid arthritis location: unspecified site (3) GI bleeding Problem: Chronic QualifierTitle: GI bleed type/associated pathology: unspecified gastrointestinal hemorrhage type Qualified Code(s): K92.2 - Gastrointestinal hemorrhage, unspecified (4) Anemia Problem: Chronic QualifierTitle: Anemia type: unspecified type Qualified Code(s): D64.9 - Anemia, unspecified (5) Atrial fibrillation Problem: Resolved QualifierTitle: Atrial fibrillation type: paroxysmal Qualified Code(s): I48.0 - Paroxysmal atrial fibrillation (6) Elevated troponin Problem: Acute (7) Acute blood loss anemia Diagnosis(s): Severe Patient has appt to followup with the [facility] anemia clinic. I directly supervised all of the hospitalist nurse practitioner care for this patient. Problem: Acute Procedures Performed: none Disposition: Home self-care Condition: Fair Problem Oriented Discharge Instructions to Patient/Family: Blood Transfusion, [id number], Gastrointestinal Bleeding, [id number] Additional Patient Instructions (free text): recheck cbc in 1 week to recheck blood count. follow up with dr. azar in 1 week. 09/05 at 1:00. new meds - amiodarone daily - protonix 2 times a day. - scripts given for both Prescriptions (Any new or edited meds): Amiodarone HCl [Cordarone] 200 mg PO DAILY #30 tablet Pantoprazole Sodium [Protonix] 40 mg PO BID@0700,2100 #60 tablet. Complete Home Medications List: Complete Home Medication List: Aspirin [Aspir 81] 81 mg PO DAILY 04/16/12 Pravastatin Sodium [Pravachol] 20 mg PO DAILY 04/16/12 Terazosin HCl [Hytrin] 5 mg PO HS 04/16/12 Hydroxychloroquine Sulfate [Plaquenil] 400 mg PO DAILY 09/03/14 Vitamin B Complex [B Complex] 500 mcg PO DAILY 09/03/14 glipiZIDE [Glucotrol] 10 mg PO BID 09/03/14 Finasteride [Proscar] 5 mg PO DAILY 12/29/14 Losartan Potassium [Cozaar] 50 mg PO DAILY 12/29/14 Ondansetron [Zofran Odt] 4 mg PO Q6H PRN #10 tab 03/12/15 predniSONE [Deltasone] 20 mg PO DAILY 08/21/16 Amiodarone HCl [Cordarone] 200 mg PO DAILY #30 tablet 08/23/16 Folic Acid 1 mg PO DAILY tablet 08/23/16 Methotrexate Sodium [Methotrexate] 10 mg PO Fr@0900 tablet 08/23/16 Multivitamins [Multivitamin Stuart] 1 cap PO DAILY capsule 08/23/16 Pantoprazole Sodium [Protonix] 40 mg PO BID@0700,2100 #60 tablet. 08/23/16 glipiZIDE [Glucotrol] 10 mg PO BIDAC tablet 08/23/16 Amb Orders for Discharge: CBC Time Frame: 1 Week, Location: Determined By Patient <Nicki Teague - Last Filed: 09/13/16 11:46> (1) Elevated troponin Problem: Acute (2) Anemia Problem: Chronic Qualifiers: Anemia type: unspecified type Qualified Code(s): D64.9 - Anemia, unspecified (3) GI bleeding Problem: Chronic Qualifiers: GI bleed type/associated pathology: unspecified gastrointestinal hemorrhage type Qualified Code(s): K92.2 - Gastrointestinal hemorrhage, unspecified (4) Rheumatoid arthritis Problem: Chronic Qualifiers: Rheumatoid arthritis location: unspecified site (5) Angina at rest Problem: Resolved (6) Atrial fibrillation Problem: Resolved Qualifiers: Atrial fibrillation type: paroxysmal Qualified Code(s): I48.0 - Paroxysmal atrial fibrillation Description of Stay: Chronic anemia, soon to begin going to the [facility] anemia clinic. Chronic arthritis, followed by rheumatology at the [facility]. At 11:30 AM today, heart rate speeded up while preparing his 's pills. He laid down, by his heart rate got faster. He then developed chest pressure on the right side of his chest, right shoulder girdle, right upper back, right neck and right ear. This persisted, and was worsened by moving around. It was associated with SOB. He therefore drove himself to the [facility] ER, where he was found to be in a fib with RVR, rate of 160. His hgb was 7.1, but this was about the same as 3 days ago. While in the ER, he was given multiple doses of labetalol IV, and while receiving this, his discomfort went away, lasting a total time of about 1 hour. We are looking for blood to transfuse, but he has antibodies that makes it somewhat difficult. pt received a total of 3 united of PRBCs over the course of his stay. elevated troponin and dyspnea likely due to pt's afib / anemia. discharge hgb 9.6. pt discharged in stable condition with close follow with with dr. azar and outpatient recheck of his hgb. Procedures Performed: none Discharge Disposition: Home self care Discharge Activity: Activity as tolerated Discharge Diet: General/regular food
[2016-08-23 10:32] VITALS: BP 142/78
[2016-08-25] MEDS ORDERED: METHOTREXATE SODIUM 2.5 MG TABLET PO SCH (09:00)
== END 2016-08-23 11:00 | disposition home or self-care (01) | DRG 378 ==
LOC: ER 11:56 → MS 16:11
PROVIDERS: ADMIT Allergy & Immunology; ATTEND Allergy & Immunology
DX: K92.2 Gastrointestinal hemorrhage, unspecified (principal); D62 Acute posthemorrhagic anemia; I48.0 Paroxysmal atrial fibrillation; I20.8 Other forms of angina pectoris; E11.9 Type 2 diabetes mellitus without complications; I10 Essential (primary) hypertension; E78.5 Hyperlipidemia, unspecified; Z79.82 Long term (current) use of aspirin; Z85.038 Personal history of other malignant neoplasm of large intestine
CPT/HCPCS: 36415; 71010; 80048; 80053; 84484; 85025; 85610; 85730; 86850; 86870; 86900; 86902; 93005; 96365; 99284; P9016

== ENCOUNTER 2016-12-18 22:29 | Inpatient (IN) | payer MEDICARE, BC ==
[2016-12-18] MEDS ORDERED: ASPIRIN 81 MG TAB.CHEW ONE (22:35)
[2016-12-18] MEDS ORDERED: ASPIRIN 81 MG TAB.CHEW PO ONE (22:38)
[2016-12-18 22:47] LABS: Mean Cell Volume 92.3 fl (78-100); Mean Corpuscular Hemoglobin 30.3 pg (27-31); Mean Corpuscular Hgb Conc 32.8 g/dl (32-36); Mean Platelet Volume 8.9 fl (6.0-9.5); Neutrophil # 3.4 K/mm3 (1.3-6.0); Neutrophil % 83.3 % (42-75.0); Platelet Count 134 K/mm3 (150-450); Red Blood Count 2.21 M/mm3 (4.7-6.0); Red Cell Distribution Width 16.7 % (11.5-14.0); White Blood Count 4.1 K/mm3 (4.0-10.5)
[2016-12-18 22:48] LABS: Hemoglobin 6.7 gm/dL (13.5-18.0)
[2016-12-18 22:49] LABS: Hematocrit 20.4 % (42.0-52.0)
--- NOTE | 2016-12-18 22:49 | ERNOTE ---
Medical Problem HPI - General Time Seen by Provider: 12/18/16 22:32 Source: patient Exam Limitations: no limitations - Immun/Allergies/Home Medications Immunizations: IMMUNIZATION HX Immunizations Up to Date Yes History of Influenza Vaccine Yes Hx Pneumococcal Vaccination Yes Allergies/Adverse Reactions: Allergies No Known Allergies Allergy (Verified 10/06/16 09:26) Home Medications: HOME MEDICATIONS Aspirin [Aspir 81] 81 mg PO DAILY 04/16/12 [Last Taken 08/11/14 10:00 81mg] Pravastatin Sodium [Pravachol] 20 mg PO DAILY 04/16/12 [Last Taken 12/27/14] Terazosin HCl [Hytrin] 5 mg PO HS 04/16/12 [Last Taken 12/27/14] Hydroxychloroquine Sulfate [Plaquenil] 400 mg PO DAILY 09/03/14 [Last Taken ] Vitamin B Complex [B Complex] 500 mcg PO DAILY 09/03/14 [Last Taken 12/28/14] Finasteride [Proscar] 5 mg PO DAILY 12/29/14 [Last Taken Unknown] Losartan Potassium [Cozaar] 50 mg PO DAILY 12/29/14 [Last Taken Unknown] Ondansetron [Zofran Odt] 4 mg PO Q6H PRN #10 tab 03/12/15 [Last Taken Unknown] predniSONE [Deltasone] 20 mg PO DAILY 08/21/16 [Last Taken Unknown] Amiodarone HCl [Cordarone] 200 mg PO DAILY #30 tablet 08/23/16 [Last Taken Unknown] Folic Acid 1 mg PO DAILY tablet 08/23/16 [Last Taken Unknown] Multivitamins [Multivitamin Stuart] 1 cap PO DAILY capsule 08/23/16 [Last Taken Unknown] Pantoprazole Sodium [Protonix] 40 mg PO BID@0700,2100 #60 tablet. 08/23/16 [ Last Taken Unknown] glipiZIDE [Glucotrol] 10 mg PO BIDAC tablet 08/23/16 [Last Taken Unknown] - History of Present History Narrative: patient comes in for chest pressure which he had this morning at 5 am. He did NOT seek any medical attention at that time. He now notices is that he gets short of breath on exertion when he walks 15 feet. He denies any chest pains right now and has no shortness of breath Review of Systems - Review of Systems Constitutional: Present: weakness, other - should becomes extremely short of breath after 10 steps, and he states that this is not normal for him. EYE: Present: no symptoms reported ENT: Present: no symptoms reported Respiratory: Present: other - Ms. of breath upon exertion Cardiology: Present: See HPI Gastrointestinal/Abdominal: Present: no symptoms reported Genitourinary: Present: no symptoms reported Musculoskeletal: Present: no symptoms reported Skin: Present: no symptoms reported - Patient's Past Medical History Patient History - Medical: Anemia, Diabetes Type 2, GERD, Osteoarthritis, Rheumatoid Arthritis Patient History - Cardiac/Respiratory: Atrial Fibrillation, Hypertension, Hyperlipidemia Patient History - Cancer: Colon Patient History - Surgical Procedures: Cataracts, Colon Resection, Colonoscopy, EGD, Total Knee Replacement Patient History - Other: None - Family History Mother Family History - Medical: , Anemia, Diabetes Type 1 Family History - Cardiac/Respiratory: No pertinent hx Family History - Cancer: No pertinent family hx Father Family History - Medical: Family History - Cardiac/Respiratory: CVA/Stroke Family History - Cancer: No pertinent family hx - Social History Living Situations: home Abuse History: No History of abuse Psych History: No pertinent hx Smoking Status: Former smoker Have you smoked in the past 12 months: No Do you dip or chew tobacco: No Alcohol Use: rarely Drug Use: none - Immunizations Immunizations Up to Date: Yes Hx Pneumococcal Vaccination: Yes History of Influenza Vaccine: Yes Physical Exam - Physical Exam General Appearance: Present: wd/wn, alert, no apparent distress - when the patient is resting comfortably on the exam table his vitals are stable he has no shortness of breath he has no discomfort when the patient walks around for 10 steps he becomes acutely short of breath and his oxygen saturation shunt drops to 88% feels fatigued Head Exam: Present: normal inspection Ears, Nose, Throat: Present: normal ENT inspection Neck: Present: normal inspection, nontender - JVD Respiratory: Present: no respiratory distress, normal breath sounds, no accessory muscle use, chest nontender, lungs clear Cardiovascular/Chest: Present: regular rate, rhythm, no murmur, normal peripheral pulses Gastrointestinal/Abdominal: Present: normal bowel sounds, nondistended, soft Back Exam: Present: normal inspection Extremity Exam: Present: normal inspection, normal range of motion Neurological Exam: Present: alert, oriented, normal mood/affect, no motor/ sensory deficits ED Progress - Vital Signs Vital Signs: Vital Signs 12/18/16 12/18/16 22:32 22:41 Temperature 36.7 C Pulse Rate 92 102 H Respiratory 20 24 H Rate Blood Pressure 216/89 O2 Sat by Pulse 92 93 Oximetry - EKG EKG: NSR EKG read: Interp. by me - X-Ray X-Ray #1 X-Ray: chest - slight congestion is noted on chest x-ray Plan - Plan Plan: This is a 76-year-old male who had chest pains this morning, he did not presents to the ER because he was taking care of a sick . Upon presentation he no longer had chest pains but he had shortness of breath with minimal exertion. My workup indicates that this patient's cardiac enzymes are negative. Diagnosis is consistent with CHF exacerbation and anemia as his hemoglobin is 6.9. His BNP is 4800 at this time this examiner is not comfortable sending the patient home his problems are multi-fold. His main admission reason is CHF exacerbation and exertion upon minimal movement secondary diagnosis is anemia and he needs to be transfused. I am being told by staff that he is a difficult match and quite possibly will not have the available blood until 8 hours from now. The patient gets transfused in 8 hours that is fine because he is medically stable as he is laying down is issue of congestive heart failure and exacerbation of his CHF needs to be addressed. Dr. Carlson originally consulted in regards to the patient's admission. Dr. Carlson suggested we transfer the patient. Discussion with the housecalls nurse at the housecalls nurse suggested we contact the patient's primary care doctor Dr. Melany Stauffer, to admit the patient in this facility as he has been admitted here before with his difficult blood type. Melany Stauffer was consulted and he graciously [facility] and future transfusion. Departure - Departure Clinical Impression: Anemia CHF exacerbation Qualifiers: Congestive heart failure type: unspecified congestive heart failure type Qualified Code(s): I50.9 - Heart failure, unspecified Disposition: [facility] Condition: Good Referrals: Logan Lopez MD [Primary Care Provider] -
[2016-12-18 23:08] LABS: Troponin I Less than 0.017 ng/ml (0.00-0.10)
[2016-12-18 23:09] LABS: ALT 16 U/L (19-67); AST 12 U/L (0-48); Albumin * 3.1 gm/dl (3.4-5.0); Alkaline Phosphatase * 56 U/L (50-170); BNP * 4708 pg/mL (5-650); BUN/Creatinine Ratio 13.1 (9.0-21.6); Bilirubin, Total 0.9 mg/dL (0.0-1.1); Blood Urea Nitrogen 21 mg/dL (6-23); CKMB 0.7 ng/mL (0.0-9.0); Ca. Corrected For Albumin 8.9 mg/dL (8.4-10.2); Calcium * 8.5 mg/dL (7.9-10.9); Carbon Dioxide 25.2 mmol/L (24-32.6); Chloride 107 mmol/L (97-106); Glucose * 234 mg/dL (70-110); Potassium 4.2 mmol/L (3.4-4.6); Sodium 141 mmol/L (132-142); TSH * 1.451 uIU/mL (0.358-3.74); Total Protein 6.3 gm/dL (6.2-8.2)
[2016-12-18] MEDS ORDERED: FUROSEMIDE 10 MG/ML VIAL IV ONE (23:35)
[2016-12-18] MEDS ORDERED: FUROSEMIDE 10 MG/ML VIAL ONE (23:35)
[2016-12-19] MEDS ORDERED: FUROSEMIDE 10 MG/ML VIAL IV ONE ×3 (08:19→12:57)
[2016-12-19] MEDS ORDERED: ONDANSETRON 4 MG TAB.RAPDIS PO PRN (08:21)
[2016-12-19] MEDS ORDERED: ACETAMINOPHEN 325 MG TABLET PO PRN (08:22)
[2016-12-19] MEDS: VITAMIN B COMP W-C 1 TAB TABLET PO SCH (09:00)
[2016-12-19] MEDS: FINASTERIDE 5 MG TABLET PO SCH (09:01)
[2016-12-19] MEDS: FOLIC ACID 1 MG TABLET PO SCH (09:01)
[2016-12-19] MEDS: LOSARTAN POTASSIUM 50 MG TABLET PO SCH (09:01)
[2016-12-19] MEDS: HYDROXYCHLOROQUINE SULFATE 200 MG TABLET PO SCH (09:01)
[2016-12-19] MEDS: predniSONE 5 MG TABLET PO SCH (09:01)
[2016-12-19] MEDS: POTASSIUM CHLORIDE 20 MEQ TABLET.SA PO SCH ×2 (09:01→17:03)
[2016-12-19] MEDS: AMIODARONE HCL 200 MG TABLET PO SCH (09:01)
[2016-12-19] MEDS: MULTIVITAMINS 1 CAP CAPSULE PO SCH (09:01)
--- NOTE | 2016-12-19 11:34 | HP ---
Chief Complaint - Chief Complaint Date of Service: 12/19/16 Time of Service: 07:45 Chief Complaint: Dyspnea History of Present Illness: This is a 76 year old man who came to the [facility] ER by private vehicle because of chest pressure which he had this morning at 5 am. He did NOT seek any medical attention prior to that time. He now notices is that he gets short of breath on exertion when he walks 15 feet. He was found in the ER to have a markedly elevated BNP and clinical findings of CHF. His Hgb is 6.9. He is thought to have GI blood loss, the anemia has recurred again and again, he has been re evaluated multiple times at the [facility], and no point of loss has ever been found. He is also followed at the [facility] for Rheumatoid Arthritis. Moreover, he has significant chronic low back pain, which significantly impairs standing and walking. His is very infirm and resides with him at home. He is admitted for transfusion and treatment of CHF. We espect him to reside at least two midnights. - Patient's Past Medical History Patient History - Medical: Anemia, Arthritis, Diabetes Type 2, GERD, Osteoarthritis, Renal Disease, Rheumatoid Arthritis Patient History - Cardiac/Respiratory: Atrial Fibrillation, CHF, Hypertension, Hyperlipidemia Patient History - Cancer: Colon Patient History - Surgical Procedures: Back Surgery, Cataracts, Colon Resection , Colonoscopy, EGD, Total Knee Replacement Patient History - Other: None - Family History Mother Family History - Medical: , Anemia, Diabetes Type 1 Family History - Cardiac/Respiratory: No pertinent hx Family History - Cancer: No pertinent family hx Father Family History - Medical: Family History - Cardiac/Respiratory: CVA/Stroke Family History - Cancer: No pertinent family hx - Social History Living Situations: spouse Abuse History: No History of abuse Psych History: No pertinent hx Smoking Status: Former smoker Have you smoked in the past 12 months: No Do you dip or chew tobacco: No Smoking Stop Date: 06/04/79 Alcohol Use: rarely Drug Use: none - Immunizations Immunizations Up to Date: Yes Hx Pneumococcal Vaccination: Yes History of Influenza Vaccine: Yes Review Of Systems (GEN) - Review of Systems Generalized/Overall Review: Present: Weakness, Malaise EENTM: Present: No Symptoms Reported Respiratory: Present: Shortness of Breath, Orthopnea Cardiac: Present: No Symptoms Reported Abdominal: Present: No Symptoms Reported Genitourinary: Present: No Symptoms Reported Musculoskeletal: Present: Back Pain Neurological: Present: No Symptoms Reported Skin: Present: No Symptoms Reported Endocrine: Present: No Symptoms Reported Misc: All systems neg except as marked Allergies/Adverse Reactions: Allergies Allergy/AdvReac Type Severity Reaction Status Date / Time No Known Allergies Allergy Verified 10/06/16 09:26 Home Medications: HOME MEDICATIONS Aspirin [Aspir 81] 81 mg PO DAILY 04/16/12 [Last Taken 08/11/14 10:00 81mg] Pravastatin Sodium [Pravachol] 20 mg PO DAILY 04/16/12 [Last Taken 12/27/14] Terazosin HCl [Hytrin] 5 mg PO HS 04/16/12 [Last Taken 12/27/14] Hydroxychloroquine Sulfate [Plaquenil] 400 mg PO DAILY 09/03/14 [Last Taken ] Vitamin B Complex [B Complex] 500 mcg PO DAILY 09/03/14 [Last Taken 12/28/14] Finasteride [Proscar] 5 mg PO DAILY 12/29/14 [Last Taken Unknown] Losartan Potassium [Cozaar] 50 mg PO DAILY 12/29/14 [Last Taken Unknown] Ondansetron [Zofran Odt] 4 mg PO Q6H PRN #10 tab 03/12/15 [Last Taken Unknown] predniSONE [Deltasone] 15 mg PO DAILY 08/21/16 [Last Taken Unknown] Amiodarone HCl [Cordarone] 200 mg PO DAILY #30 tablet 08/23/16 [Last Taken Unknown] Folic Acid 1 mg PO DAILY tablet 08/23/16 [Last Taken Unknown] Multivitamins [Multivitamin Stuart] 1 cap PO DAILY capsule 08/23/16 [Last Taken Unknown] Pantoprazole Sodium [Protonix] 40 mg PO BID@0700,2100 #60 tablet.dr 08/23/16 [ Last Taken Unknown] glipiZIDE [Glucotrol] 10 mg PO BIDAC tablet 08/23/16 [Last Taken Unknown] Exam - Exam Vital Signs: Vital Signs - Last Taken Selected Entries 12/19/16 06:12 Temperature 36.9 C Temperature Oral Source Pulse Rate 67 Respiratory 18 Rate Respiratory Normal Depth Blood Pressure 169/58 Blood Pressure Supine Position O2 Sat by Pulse 95 Oximetry Oxygen Delivery Room Air Method Constitutional: Present: Alert, Oriented x3, Cooperative, Well developed, Well nourished, Mild distress ENT Exam: Present: normal ENT inspection, hearing grossly normal Eye Exam: bilateral eye: normal inspection, PERRL, EOMI Neck: Present: normal inspection Back Exam: Present: normal inspection Respiratory: Present: rales Cardiovascular/Chest: Present: regular rate, rhythm, no murmur Abdomen: Present: Normal bowel sounds, soft, nontender, nondistended, no rebound tenderness, no hepatospenomegaly, no masses Extremity: Present: pedal edema Skin Exam: Present: no cyanosis, cool/dry, pallor Neurologic: Present: alert, oriented x 3 Appearance: Present: appropriate appearance, appropriate insight, neat, no memory impairment Eye contact: Present: cooperative, good eye contact, normal speech Thoughts: Present: normal thought pattern Diagnostic Studies: Laboratory Results WBC 4.1 K/mm3 (4.0-10.5) 12/18/16 22:40 RBC 2.21 M/mm3 (4.7-6.0) L 12/18/16 22:40 Hgb 6.7 gm/dL (13.5-18.0) L* 12/18/16 22:40 Hct 20.4 % (42.0-52.0) L* 12/18/16 22:40 MCV 92.3 fl (78-100) 12/18/16 22:40 MCH 30.3 pg (27-31) 12/18/16 22:40 MCHC 32.8 g/dl (32-36) 12/18/16 22:40 RDW 16.7 % (11.5-14.0) H 12/18/16 22:40 Plt Count 134 K/mm3 (150-450) L 12/18/16 22:40 MPV 8.9 fl (6.0-9.5) 12/18/16 22:40 Immature Gran % (Auto) 0.70 % (0.001-0.429) H 12/18/16 22:40 Immature Gran # (Auto) 0.03 K/mm3 (0.000-0.0310) 12/18/16 22:40 Neutrophils % 83.3 % (42-75.0) H 12/18/16 22:40 Lymphocytes % 8.1 % (20-51) L 12/18/16 22:40 Monocytes % 6.7 % (0.0-9) 12/18/16 22:40 Eosinophils % 1.0 % (0.0-3.0) 12/18/16 22:40 Basophils % 0.2 % (0.0-1.0) 12/18/16 22:40 Nucleated RBC % 0.0 k/mm3 (0-1) 12/18/16 22:40 Neutrophils # 3.4 K/mm3 (1.3-6.0) 12/18/16 22:40 Lymphocytes # 0.3 k/mm3 (1.5-3.5) L 12/18/16 22:40 Monocytes # 0.3 k/mm3 (0.0-1.0) 12/18/16 22:40 Eosinophils # 0.0 k/mm3 (0.0-0.7) 12/18/16 22:40 Absolute Basophils 0.0 k/mm3 (0.0-0.1) 12/18/16 22:40 Sodium 141 mmol/L (132-142) 12/18/16 22:45 Plasma Sodium 143 mmol/L (130-142) H 12/18/16 22:45 Potassium 4.2 mmol/L (3.4-4.6) 12/18/16 22:45 Chloride 107 mmol/L (97-106) H 12/18/16 22:45 Carbon Dioxide 25.2 mmol/L (24-32.6) 12/18/16 22:45 Anion Gap 13.0 mmol/L (6.8-13.8) 12/18/16 22:45 BUN 21 mg/dL (6-23) 12/18/16 22:45 Creatinine 1.60 mg/dL (0.4-1.4) H D 12/18/16 22:45 Est GFR (Non-Af Amer) 45 mL/min (60-130) L 12/18/16 22:45 BUN/Creatinine Ratio 13.1 (9.0-21.6) 12/18/16 22:45 Random Glucose 234 mg/dL (70-110) H 12/18/16 22:45 Calcium 8.5 mg/dL (7.9-10.9) 12/18/16 22:45 Calcium Adj for Albumin 8.9 mg/dL (8.4-10.2) 12/18/16 22:45 Total Bilirubin 0.9 mg/dL (0.0-1.1) 12/18/16 22:45 AST 12 U/L (0-48) 12/18/16 22:45 ALT 16 U/L (19-67) L 12/18/16 22:45 Alkaline Phosphatase 56 U/L (50-170) 12/18/16 22:45 CK-MB (CK-2) 0.7 ng/mL (0.0-9.0) 12/18/16 22:45 Troponin I Less than 0.017 ng/ml (0.00-0.10) 12/18/16 22:45 B-Natriuretic Peptide 4708 pg/mL (5-650) H 12/18/16 22:45 Total Protein 6.3 gm/dL (6.2-8.2) 12/18/16 22:45 Albumin 3.1 gm/dl (3.4-5.0) L 12/18/16 22:45 TSH 1.451 uIU/mL (0.358-3.74) 12/18/16 22:45 Stool Occult Blood Negative 12/19/16 Unknown Blood Type O Positive 12/18/16 22:40 Antibody Screen Negative 12/18/16 22:40 Crossmatch See Detail 12/18/16 22:40 Assessment/Plan - Narrative Narrative: Transfuse. IV Lasix. Follow Labs. - Assessment/Plan (1) Low back pain Problem: Acute (2) Anemia Problem: Acute (3) CHF exacerbation Problem: Acute Qualifiers: Congestive heart failure type: unspecified congestive heart failure type Qualified Code(s): I50.9 - Heart failure, unspecified (4) Acute blood loss anemia Problem: Acute (5) Rheumatoid arthritis Problem: Chronic
[2016-12-19] MEDS: glipiZIDE 10 MG TABLET PO SCH (17:02)
[2016-12-19] MEDS: PANTOPRAZOLE SODIUM 40 MG TABLET.EC PO SCH (20:14)
[2016-12-19] MEDS ORDERED: SIMVASTATIN 10 MG TABLET PO SCH (21:00)
[2016-12-19] MEDS ORDERED: TERAZOSIN HCL 5 MG CAPSULE PO SCH (21:00)
[2016-12-20] MEDS ORDERED: FUROSEMIDE 10 MG/ML VIAL IV ONE (02:50)
[2016-12-20] MEDS ORDERED: FUROSEMIDE 10 MG/ML VIAL ONE (02:52)
[2016-12-20 05:47] LABS: Hematocrit 27.8 % (42.0-52.0); Hemoglobin 9.4 gm/dL (13.5-18.0); Mean Cell Volume 85.8 fl (78-100); Mean Corpuscular Hgb Conc 33.8 g/dl (32-36); Mean Platelet Volume 9.4 fl (6.0-9.5); Neutrophil # 3.6 K/mm3 (1.3-6.0); Neutrophil % 79.9 % (42-75.0); Platelet Count 149 K/mm3 (150-450); Red Blood Count 3.24 M/mm3 (4.7-6.0); Red Cell Distribution Width 16.5 % (11.5-14.0); White Blood Count 4.4 K/mm3 (4.0-10.5)
[2016-12-20 05:55] LABS: Anion Gap 12.5 mmol/L (6.8-13.8); BUN/Creatinine Ratio 14.9 (9.0-21.6); Calcium * 8.6 mg/dL (7.9-10.9); Carbon Dioxide 27.3 mmol/L (24-32.6); Potassium 3.8 mmol/L (3.4-4.6)
[2016-12-20] MEDS: glipiZIDE 10 MG TABLET PO SCH (06:54)
[2016-12-20] MEDS: PANTOPRAZOLE SODIUM 40 MG TABLET.EC PO SCH (06:54)
[2016-12-20] MEDS: AMIODARONE HCL 200 MG TABLET PO SCH (08:54)
[2016-12-20] MEDS: LOSARTAN POTASSIUM 50 MG TABLET PO SCH (08:54)
[2016-12-20] MEDS: predniSONE 5 MG TABLET PO SCH (08:55)
[2016-12-20] MEDS: POTASSIUM CHLORIDE 20 MEQ TABLET.SA PO SCH (08:55)
[2016-12-20] MEDS: MULTIVITAMINS 1 CAP CAPSULE PO SCH (08:55)
[2016-12-20] MEDS: FOLIC ACID 1 MG TABLET PO SCH (08:55)
[2016-12-20] MEDS: HYDROXYCHLOROQUINE SULFATE 200 MG TABLET PO SCH (08:55)
[2016-12-20] MEDS: VITAMIN B COMP W-C 1 TAB TABLET PO SCH (08:56)
[2016-12-20] MEDS: FINASTERIDE 5 MG TABLET PO SCH (08:56)
--- NOTE | 2016-12-20 09:07 | DS ---
(1) Low back pain Problem: Acute Qualifiers: Chronicity: chronic Back pain laterality: bilateral Sciatica presence: without sciatica Qualified Code(s): M54.5 - Low back pain; G89.29 - Other chronic pain (2) Anemia Problem: Acute Qualifiers: Anemia type: iron deficiency Iron deficiency anemia type: chronic blood loss Qualified Code(s): D50.0 - Iron deficiency anemia secondary to blood loss (chronic) (3) CHF exacerbation Problem: Acute Qualifiers: Congestive heart failure type: systolic Qualified Code(s): I50.23 - Acute on chronic systolic (congestive) heart failure (4) Acute blood loss anemia Problem: Acute (5) Rheumatoid arthritis Problem: Chronic Qualifiers: Rheumatoid arthritis location: multiple sites Rheumatoid factor presence: unspecified presence Qualified Code(s): M06.9 - Rheumatoid arthritis, unspecified (6) Stage 3 chronic kidney disease Problem: Chronic (7) Diabetes mellitus type 2 in nonobese Problem: Chronic Description of Stay: Diuresed well with IV lasix. Transfused with 3 units packed red cells. Feels betters than he has in quite some time. Has followup tomorrow at the [facility] anemic clinic. Procedures Performed: none Discharge Disposition: Home self care Disposition: Home self-care Condition: Good Discharge Activity: Activity as tolerated Discharge Diet: Consistent carbs, Low salt Referrals: Logan Lopez MD [Primary Care Provider] - Problem Oriented Discharge Instructions to Patient/Family: Iron Deficiency Anemia, Adult Additional Patient Instructions (free text): TCM appointment at followup. Call Rosalia at [phone]. Followup with Dr. Lozano in 2 weeks. Keep your [facility] appt. Complete Home Medications List: Complete Home Medication List: Pravastatin Sodium [Pravachol] 20 mg PO DAILY 04/16/12 Terazosin HCl [Hytrin] 5 mg PO HS 04/16/12 Hydroxychloroquine Sulfate [Plaquenil] 400 mg PO DAILY 09/03/14 Vitamin B Complex [B Complex] 500 mcg PO DAILY 09/03/14 Finasteride [Proscar] 5 mg PO DAILY 12/29/14 Amiodarone HCl [Cordarone] 200 mg PO DAILY #30 tablet 08/23/16 Folic Acid 1 mg PO DAILY tablet 08/23/16 Multivitamins [Multivitamin Stuart] 1 cap PO DAILY capsule 08/23/16 Pantoprazole Sodium [Protonix] 40 mg PO BID@0700,2100 #60 tablet. 08/23/16 glipiZIDE [Glucotrol] 10 mg PO BIDAC tablet 08/23/16 Methotrexate Sodium [Methotrexate] 15 mg PO Q7D 12/19/16 predniSONE [Prednisone] 15 mg PO DAILY 12/19/16 Acetaminophen [Tylenol] 650 mg PO QID PRN #0 tablet 12/20/16 Losartan Potassium [Cozaar] 50 mg PO DAILY tablet 12/20/16 Ondansetron [Zofran Odt] 4 mg PO Q6H PRN #0 tab.rapdis 12/20/16 predniSONE [Prednisone] 15 mg PO DAILY tablet 12/20/16
[2016-12-20] MEDS ORDERED: METHOTREXATE SODIUM 2.5 MG TABLET PO SCH (09:15)
[2016-12-20 10:08] VITALS: BP 139/55
[2016-12-21] MEDS ORDERED: predniSONE 5 MG TABLET PO SCH (09:00)
== END 2016-12-20 10:58 | disposition home or self-care (01) | DRG 292 ==
LOC: ER 22:29 → MS 23:30 → OBSVTOIN 12-19 09:56
PROVIDERS: ADMIT Allergy & Immunology; ATTEND Allergy & Immunology
DX: I50.23 Acute on chronic systolic (congestive) heart failure (principal); D62 Acute posthemorrhagic anemia; M54.5 Low back pain; G89.29 Other chronic pain; M06.9 Rheumatoid arthritis, unspecified; I12.9 Hypertensive chronic kidney disease with stage 1 through stage 4 chronic kidney disease, or unspecified chronic kidney disease; E11.22 Type 2 diabetes mellitus with diabetic chronic kidney disease; N18.3 Chronic kidney disease, stage 3 (moderate); Z79.82 Long term (current) use of aspirin
CPT/HCPCS: 36415; 71010; 80048; 80053; 82272; 82553; 83880; 84443; 84484; 85025; 86850; 86900; 86902; 93005; 96374; 99284; G0378; P9016

== ENCOUNTER 2018-07-31 18:45 | Observation (INO) ==
[2018-07-31] MEDS ORDERED: ASPIRIN 81 MG TAB.CHEW ONE (19:21)
[2018-07-31] MEDS ORDERED: ASPIRIN 81 MG TAB.CHEW PO ONE (19:22)
--- NOTE | 2018-07-31 19:39 | ERNOTE ---
Chest Pain/Cardiac HPI Date of Service: 07/31/18 Chief Complaint: Chest Pain Time Seen by Provider: 07/31/18 19:02 Source: patient, family Exam Limitations: no limitations Immunizations: IMMUNIZATION HX Immunizations Up to Date Yes History of Influenza Vaccine Yes Hx Pneumococcal Vaccination Yes Allergies/Adverse Reactions: Allergies No Known Allergies Allergy (Verified 10/06/16 09:26) Home Medications: HOME MEDICATIONS Terazosin HCl [Hytrin] 5 mg PO HS 04/16/12 [Last Taken 12/27/14] Hydroxychloroquine Sulfate [Plaquenil] 400 mg PO DAILY 09/03/14 [Last Taken 12/28/14] Vitamin B Complex [B Complex] 500 mcg PO DAILY 09/03/14 [Last Taken 12/28/14] Amiodarone HCl [Cordarone] 200 mg PO DAILY #30 tablet 08/23/16 [Last Taken Unknown] Folic Acid 1 mg PO DAILY tablet 08/23/16 [Last Taken Unknown] Multivitamins [Multivitamin Stuart] 1 cap PO DAILY capsule 08/23/16 [Last Taken Unknown] Pantoprazole Sodium [Protonix] 40 mg PO BID@0700,2100 #60 tablet. 08/23/16 [Last Taken Unknown] Acetaminophen [Tylenol] 650 mg PO QID PRN #0 tablet 12/20/16 [Last Taken Unknown] pravastatin 20 mg tablet 20 mg PO DAILY #30 tab 12/10/17 [Last Taken Unknown] finasteride 5 mg tablet 5 mg PO DAILY #90 tab 03/08/18 [Last Taken Unknown] furosemide 20 mg tablet 60 mg PO DAILY 30 Days #90 tab 04/22/18 [Last Taken Unknown] glipizide 10 mg tablet See Rx Instructions .ROUTE .COMPLEX #30 tablet 05/29/18 [Last Taken Unknown] predniSONE [Prednisone] 5 mg PO BID 07/31/18 [Last Taken Unknown] Narrative: Patient presents ambulatory to the emergency room today with his daughter with complaints of the onset around 1750 of being in a restaurant and had eaten a sandwich developed some chest pain across his upper chest with radiation into both sides of his neck. Patient states he rated his chest discomfort at a 7 at its worst he denied any associated shortness of breath no nausea vomiting or sweats but did complain of some headache. Patient states he has had similar symptoms in the past associated with atrial fibrillation and thinks the last episode was around 2 years ago. Patient denies taking any medication for the discomfort before coming to the emergency room. Timing: constant Severity/Quality: moderate Location: central Chest Pain Radiation: jaw Activities at Onset: other - Had just finished eating Modifying Factors - Improves: Present: other - None Modifying Factors - Worsens: Present: nothing Nitro Today/Relief: no nitro taken today Aspirin Treatment Today: no aspirin today Associated Symptoms: Present: palpitations, weakness Prior Chest Pain/Cardiac Workup: Reports: other - Atrial fibrillation Review of Systems - Review of Systems Constitutional: Present: weakness EYE: Present: no symptoms reported ENT: Present: no symptoms reported Respiratory: Present: no symptoms reported Cardiology: Present: chest pain Gastrointestinal/Abdominal: Present: no symptoms reported Genitourinary: Present: no symptoms reported Musculoskeletal: Present: no symptoms reported Skin: Present: no symptoms reported, change in color Neurological: Present: no symptoms reported, headache, weakness Endocrine: Present: no symptoms reported Hematologic/Lymphatic: Present: no symptoms reported Medical History (Last Updated 07/31/18 @ 19:16 by Swati Muniz RN) Hx of atrial fibrillation without current medication Social History: Preferred Language Chinese Do you have any episcopal or Yes: Jehov[employer] Witness cultural preference? Smoking Status Former smoker Have you smoked in the past 12 Yes months Do you dip or chew tobacco Yes Abuse History No History of abuse Psych History No pertinent hx Alcohol Use none Drug Use none,benzodiazepine No Social History Section defined Physical Exam - Physical Exam General Appearance: Present: wd/wn, alert, no apparent distress Eye Exam: Normal inspection: bilateral, PERRL: bilateral, EOMI: bilateral Ears, Nose, Throat: Present: normal ENT inspection Neck: Present: normal inspection, nontender Respiratory: Present: no respiratory distress, normal breath sounds, no accessory muscle use, chest nontender, lungs clear Cardiovascular/Chest: Present: no murmur, normal peripheral pulses, tachycardia - Atrial fibrillation with a rate of 162 on initial EKG Gastrointestinal/Abdominal: Present: normal bowel sounds, nontender, nondist ended, soft, no organomegaly Rectal Exam: Present: nontender, deferred Male Genitals Exam: Present: deferred Back Exam: Present: normal inspection, normal range of motion, no CVA tenderness, no vertebral tenderness Extremity Exam: Present: normal inspection, normal range of motion, no edema Neurological Exam: Present: alert, oriented, normal mood/affect, no motor/sensory deficits Skin Exam: Present: normal color, warm/dry Lymphatic Exam: Present: no adenopathy Progress - Date and Time Seen: Date and Time: 07/31/18 19:35 Patient self converted without medication and maintaining heart rate in the 90s 07/31/18 19:39 Patient reports chest pain resolved 07/31/18 21:28 Patient remains pain-free with no atrial fibrillation and a reviewed the case with Dr. Sotomayor the physician on-call and she will place the patient in observation [facility] - Results and Orders Patient's Lab Results:: I have reviewed the patient's lab results. - Vital Signs Patient's Vital Signs:: I have reviewed the patient's vital signs. Vital Signs: Vital Signs 07/31/18 18:58 Temperature 35.6 C L Pulse Rate 181 H Respiratory Rate 17 Blood Pressure 119/86 O2 Sat by Pulse Oximetry 88 L - X-Ray X-Ray #1 X-Ray: chest Interpretation: Interp. by me - No active disease - Progress/Reassessment Chief Complaint: Chest Pain Progress:: Improved Plan - Plan Plan: Patient will be placed in observation MedSurg Departure Clinical Impression: Chest pain, Atrial fibrillation, Non-insulin dependent type 2 diabetes mellitus - Departure Disposition: Short Term Hospital Inpatient Condition: Stable Referrals: Kaushal Ford DO [Primary Care Provider] -
[2018-07-31 19:47] LABS: Hematocrit 28.4 % (42.0-52.0); Hemoglobin 9.6 gm/dL (13.5-18.0); Mean Cell Volume 88.2 fl (78-100); Mean Corpuscular Hemoglobin 29.8 pg (27-31); Mean Corpuscular Hgb Conc 33.8 g/dl (32-36); Mean Platelet Volume 9.5 fl (8-11.3); Neutrophil # 3.6 K/mm3 (1.3-6.0); Neutrophil % 73.5 % (42-75.0); Platelet Count 148 K/mm3 (150-450); Red Blood Count 3.22 M/mm3 (4.7-6.0); Red Cell Distribution Width 15.7 % (11.5-14.0); White Blood Count 4.9 K/mm3 (4.0-10.5)
[2018-07-31] MEDS: NORMAL SALINE 1,000 ML IV PRN (19:50)
[2018-07-31 19:55] LABS: Prothrombin Time (Patient) 11.4 Seconds (9.1-10.7)
[2018-07-31 20:01] LABS: INR 1.16 INR (0.92-1.08); Partial Thrombolplastin Time 25.3 Seconds (24-32)
[2018-07-31 20:04] LABS: ALT 8 U/L (19-67); AST 17 U/L (0-48); Albumin * 3.8 gm/dl (3.4-5.0); Alkaline Phosphatase * 73 U/L (50-170); Anion Gap 21.5 mmol/L (6.8-13.8); BUN/Creatinine Ratio 17.9 (9.0-21.6); Bilirubin, Total 0.9 mg/dL (0.0-1.1); Blood Urea Nitrogen 30 mg/dL (6-23); Ca. Corrected For Albumin 9.1 mg/dL (8.4-10.2); Calcium * 9.3 mg/dL (7.9-10.9); Carbon Dioxide 17.7 mmol/L (24-32.6); Chloride 109 mmol/L (97-106); Glucose * 215 mg/dL (70-110); Potassium 4.2 mmol/L (3.4-4.6); Sodium 144 mmol/L (132-142); Total Protein 6.9 gm/dL (6.2-8.2)
[2018-07-31 20:05] LABS: Troponin I Less than 0.017 ng/mL (0.00-0.10)
[2018-07-31] MEDS ORDERED: ENOXAPARIN SODIUM 100 MG/ML SYRG SC SCH (22:00)
[2018-07-31] MEDS ORDERED: ACETAMINOPHEN 500 MG TABLET PO PRN (22:03)
--- NOTE | 2018-07-31 22:47 | HP ---
Chief Complaint - Chief Complaint Date of Service: 07/31/18 Time of Service: 22:36 Chief Complaint: I had chest pain irradiating to my neck that started this afternoon History of Present Illness: 77-year-old male with past medical history of rheumatoid arthritis, colon cancer ,vertebral disc disease corrected with surgery, type 2 diabetes, atrial fibrillation, BPH, status post left knee replacement, status post colectomy came to our ER due to retrosternal chest pain with the irradiation to bilateral sides of his neck 7 out of 10 in intensity with no associating symptoms that started this afternoon shortly after having a sandwich in his home. Patient reports he was sitting down when the pain started and had an uneventful day before that. He denies shortness of breath dizziness diaphoresis or any other symptoms. He reports having this pain before accompanied by atrial fibrillation a year and a half ago. Shortly after that his rhythm converted back to sinus and he has not had a issue since. When patient arrived to the ER EKG confirmed that he had atrial fibrillation with a heart rate of about 180 bpm. Medical History (Last Updated 07/31/18 @ 21:55 by Swati Muniz RN) Glaucoma History of colon cancer Hx of atrial fibrillation without current medication Hx of diabetes mellitus Hx of rheumatoid arthritis Surgical History: Surgical History (Last Updated 07/31/18 @ 21:54 by Swati Muniz RN) History of back surgery History of resection of large bowel Hx of knee surgery Social History: Preferred Language [place] Verdean Do you have any yazidism or Yes: Latter-Day cultural preference? Smoking Status Former smoker Have you smoked in the past 12 Yes months Do you dip or chew tobacco Yes Abuse History No History of abuse Psych History No pertinent hx Alcohol Use none Drug Use none,benzodiazepine No Social History Section defined Peds Patient Hx - Developmental: No Pertinent Hx Peds Patient Hx - Medical: No Pertinent Hx Peds Patient Hx - Cardiac/Respiratory: No Pertinent Hx Peds Patient Hx - Surgical: No Surgical History Patient History - Cancer: No Hx of Cancer Review Of Systems (GEN) - Review of Systems Generalized/Overall Review: Present: No Symptoms Reported EENTM: Present: No Symptoms Reported Respiratory: Present: No Symptoms Reported Cardiac: Present: Chest Pain, Palpitations Abdominal: Present: No Symptoms Reported Genitourinary: Present: No Symptoms Reported Musculoskeletal: Present: No Symptoms Reported Neurological: Present: No Symptoms Reported Skin: Present: No Symptoms Reported Endocrine: Present: No Symptoms Reported Immunizations: IMMUNIZATION HX Immunizations Up to Date Yes History of Influenza Vaccine Yes Hx Pneumococcal Vaccination Yes Allergies/Adverse Reactions: Allergies Allergy/AdvReac Type Severity Reaction Status Date / Time No Known Allergies Allergy Verified 10/06/16 09:26 Home Medications: HOME MEDICATIONS Hydroxychloroquine Sulfate [Plaquenil] 400 mg PO DAILY 09/03/14 [Last Taken 12/28/14] Vitamin B Complex [B Complex] 500 mcg PO DAILY 09/03/14 [Last Taken 12/28/14] Folic Acid 1 mg PO DAILY tablet 08/23/16 [Last Taken Unknown] Multivitamins [Multivitamin Stuart] 1 cap PO DAILY capsule 08/23/16 [Last Taken Unknown] Acetaminophen [Tylenol] 650 mg PO QID PRN #0 tablet 12/20/16 [Last Taken Unk nown] pravastatin 20 mg tablet 20 mg PO DAILY #30 tab 12/10/17 [Last Taken Unknown] finasteride 5 mg tablet 5 mg PO DAILY #90 tab 03/08/18 [Last Taken Unknown] furosemide 20 mg tablet 60 mg PO DAILY 30 Days #90 tab 04/22/18 [Last Taken Unknown] glipizide 10 mg tablet See Rx Instructions .ROUTE .COMPLEX #30 tablet 05/29/18 [Last Taken Unknown] Bimatoprost [Lumigan 0.01% Ophthalmic Solution] 1 drp EACHEYE HS 07/31/18 [Last Taken Unknown] Brimonidine Tartrate/Timolol [Combigan Eye Drops] 5 ml OPHTHALMIC (EYE) Q12H 07/31/18 [Last Taken Unknown] Losartan Potassium [Cozaar] 50 mg PO DAILY 07/31/18 [Last Taken Unknown] Tamsulosin HCl [Flomax] 0.4 mg PO DAILY 07/31/18 [Last Taken Unknown] predniSONE [Prednisone] 5 mg PO BID 07/31/18 [Last Taken Unknown] Exam - Exam Vital Signs: Vital Signs - Last Taken Temp 97.7 C H 07/31/18 22:08 Pulse 67 07/31/18 22:08 Resp 18 07/31/18 22:08 BP 144/65 07/31/18 22:08 Pulse Ox 100 07/31/18 22:08 Constitutional: Present: Alert, Oriented x3, Cooperative, Well developed, Well nourished, No distress, Elderly, Obese ENT Exam: Present: normal ENT inspection, hearing grossly normal, pharynx normal, TMs normal Eye Exam: bilateral eye: normal inspection, PERRL, EOMI Neck: Present: non-tender, full range of motion, supple, normal inspection, trachea midline Back Exam: Present: no CVA tenderness, decreased range of motion, vertebral tenderness, other - Vertical scar in mid back Breasts: Present: Exam deferred Respiratory: Present: chest non-tender, lungs clear, normal breath sounds, no r espiratory distress, no accessory muscle use Cardiovascular/Chest: Present: normal peripheral pulses, regular rate, rhythm, no chest tenderness, no edema, no gallop, no JVD, no murmur, no rub Peripheral Pulses: carotid (R): 3+, carotid (L): 3+, femoral (R): 3+, femoral (L): 3+, dorsalis-pedis (R): 3+, dorsalis-pedis (L): 3+ Abdomen: Present: Normal bowel sounds, soft, nontender, nondistended, no rebound tenderness, no hepatospenomegaly, no masses, obese /Rectal: Present: Exam deferred Extremity: Present: normal range of motion, non-tender, normal inspection, no pedal edema, no calf tenderness Skin Exam: Present: normal color, warm/dry, no cyanosis Lymphatic: Present: no adenopathy Neurologic: Present: blueprint tracer II-XII nml as tested, normal cerebellar test, no motor/sensory deficits, alert, normal mood/affect, oriented x 3 Appearance: Present: appropriate appearance, appropriate insight, neat, no memory impairment Eye contact: Present: cooperative, good eye contact, normal speech Thoughts: Present: normal thought pattern, no apparent hallucination Diagnostic Studies: Abnormal Lab Results 07/31/18 07/31/18 07/31/18 Range/Units 19:40 19:40 19:40 RBC 3.22 L (4.7-6.0) M/mm3 Hgb 9.6 L (13.5-18.0) gm/dL Hct 28.4 L (42.0-52.0) % RDW 15.7 H (11.5-14.0) % Plt Count 148 L (150-450) K/mm3 Immature Gran % (Auto) 0.60 H (0.001-0.429) % Lymphocytes % 14.7 L (20-51) % Lymphocytes # 0.72 L (1.5-3.5) k/mm3 PT 11.4 H (9.1-10.7) Seconds INR (Anticoag Therapy) 1.16 H (0.92-1.08) INR Sodium 144 H (132-142) mmol/L Plasma Sodium 146 H (130-142) mmol/L Chloride 109 H (97-106) mmol/L Carbon Dioxide 17.7 L (24-32.6) mmol/L Anion Gap 21.5 H (6.8-13.8) mmol/L BUN 30 H (6-23) mg/dL Creatinine 1.68 H (0.4-1.4) mg/dL Est GFR (Non-Af Amer) 42 L (60-130) mL/min Random Glucose 215 H (70-110) mg/dL ALT 8 L (19-67) U/L Laboratory Results WBC 4.9 K/mm3 (4.0-10.5) 07/31/18 19:40 RBC 3.22 M/mm3 (4.7-6.0) L 07/31/18 19:40 Hgb 9.6 gm/dL (13.5-18.0) L 07/31/18 19:40 Hct 28.4 % (42.0-52.0) L 07/31/18 19:40 MCV 88.2 fl (78-100) 07/31/18 19:40 MCH 29.8 pg (27-31) 07/31/18 19:40 MCHC 33.8 g/dl (32-36) 07/31/18 19:40 RDW 15.7 % (11.5-14.0) H 07/31/18 19:40 Plt Count 148 K/mm3 (150-450) L 07/31/18 19:40 MPV 9.5 fl (8-11.3) 07/31/18 19:40 Immature Gran % (Auto) 0.60 % (0.001-0.429) H 07/31/18 19:40 Immature Gran # (Auto) 0.03 K/mm3 (0.000-0.0310) 07/31/18 19:40 Neutrophils % 73.5 % (42-75.0) 07/31/18 19:40 Lymphocytes % 14.7 % (20-51) L 07/31/18 19:40 Monocytes % 9.0 % (0.0-9) 07/31/18 19:40 Eosinophils % 1.8 % (0.0-3.0) 07/31/18 19:40 Basophils % 0.4 % (0.0-1.0) 07/31/18 19:40 Nucleated RBC % 0.0 k/mm3 (0-1) 07/31/18 19:40 Neutrophils # 3.6 K/mm3 (1.3-6.0) 07/31/18 19:40 Lymphocytes # 0.72 k/mm3 (1.5-3.5) L 07/31/18 19:40 Monocytes # 0.4 k/mm3 (0.0-1.0) 07/31/18 19:40 Eosinophils # 0.1 k/mm3 (0.0-0.7) 07/31/18 19:40 Absolute Basophils 0.0 k/mm3 (0.0-0.1) 07/31/18 19:40 PT 11.4 Seconds (9.1-10.7) H 07/31/18 19:40 INR (Anticoag Therapy) 1.16 INR (0.92-1.08) H 07/31/18 19:40 PTT ([place]) 25.3 Seconds (24-32) 07/31/18 19:40 Sodium 144 mmol/L (132-142) H 07/31/18 19:40 Plasma Sodium 146 mmol/L (130-142) H 07/31/18 19:40 Potassium 4.2 mmol/L (3.4-4.6) D 07/31/18 19:40 Chloride 109 mmol/L (97-106) H 07/31/18 19:40 Carbon Dioxide 17.7 mmol/L (24-32.6) L 07/31/18 19:40 Anion Gap 21.5 mmol/L (6.8-13.8) H 07/31/18 19:40 BUN 30 mg/dL (6-23) H 07/31/18 19:40 Creatinine 1.68 mg/dL (0.4-1.4) H 07/31/18 19:40 Est GFR (Non-Af Amer) 42 mL/min (60-130) L 07/31/18 19:40 BUN/Creatinine Ratio 17.9 (9.0-21.6) 07/31/18 19:40 Random Glucose 215 mg/dL (70-110) H 07/31/18 19:40 Calcium 9.3 mg/dL (7.9-10.9) 07/31/18 19:40 Calcium Adj for Albumin 9.1 mg/dL (8.4-10.2) 07/31/18 19:40 Total Bilirubin 0.9 mg/dL (0.0-1.1) 07/31/18 19:40 AST 17 U/L (0-48) 07/31/18 19:40 ALT 8 U/L (19-67) L 07/31/18 19:40 Alkaline Phosphatase 73 U/L (50-170) 07/31/18 19:40 Troponin I Less than 0.017 ng/mL (0.00-0.10) 07/31/18 19:40 Total Protein 6.9 gm/dL (6.2-8.2) 07/31/18 19:40 Albumin 3.8 gm/dl (3.4-5.0) 07/31/18 19:40 Assessment/Plan - Narrative Narrative: Patient was evaluated in medical chart was reviewed and decision to admit to outpatient observation for atrial fibrillation was taken. Patient converted to regular sinus rhythm while in the ER without any medications and his chest pain has resolved. We will place him on school lunch monitor to observe him throughout the night. In the meantime patient was placed on metoprolol twice daily for rate control and Lovenox for anticoagulation. He will be reevaluated in the morning by his primary care doctor Dr. Ford. - Assessment/Plan (1) Atrial fibrillation Problem: Acute Qualifiers: (2) Diabetes 1.5, managed as type 2 Problem: Chronic (3) Chest pain Problem: Acute
[2018-07-31] MEDS ORDERED: ACETAMINOPHEN 325 MG TABLET PO PRN (22:57)
[2018-07-31] MEDS ORDERED: TIMOLOL ophthalmic (eye) SCH (23:00)
[2018-07-31] MEDS ORDERED: [UNRECOGNIZED DRUG - OTHER] ophthalmic (eye) SCH (23:00)
[2018-07-31] MEDS ORDERED: BRIMONIDINE TARTRATE ophthalmic (eye) SCH (23:00)
[2018-08-01] MEDS: NORMAL SALINE 1,000 ML IV PRN ×2 (02:59→11:38)
[2018-08-01] MEDS ORDERED: glipiZIDE 10 MG TABLET PO SCH (07:00)
[2018-08-01 07:54] LABS: Anion Gap 16.8 mmol/L (6.8-13.8); BUN/Creatinine Ratio 19.4 (9.0-21.6); Calcium * 8.2 mg/dL (7.9-10.9); Carbon Dioxide 17.2 mmol/L (24-32.6); Estimated Creat Clear 34.9
[2018-08-01] MEDS ORDERED: BRIMONIDINE TARTRATE 50 DROP BTL EACHEYE SCH (08:00)
[2018-08-01] MEDS ORDERED: TIMOLOL MALEATE 50 DROP BTL EACHEYE SCH (08:00)
[2018-08-01] MEDS ORDERED: FAMOTIDINE 20 MG TABLET PO SCH (09:00)
[2018-08-01] MEDS ORDERED: TAMSULOSIN HCL 0.4 MG CAP.SR.24H PO SCH ×2 (09:00→18:00)
[2018-08-01] MEDS ORDERED: FINASTERIDE 5 MG TABLET PO SCH (09:00)
[2018-08-01] MEDS ORDERED: MULTIVITAMINS 1 CAP CAPSULE PO SCH (09:00)
[2018-08-01] MEDS ORDERED: LOSARTAN POTASSIUM 50 MG TABLET PO SCH (09:00)
[2018-08-01] MEDS ORDERED: predniSONE 5 MG TABLET PO SCH (09:00)
[2018-08-01] MEDS ORDERED: VITAMIN B COMP W-C 1 TAB TABLET PO SCH (09:00)
[2018-08-01] MEDS ORDERED: METOPROLOL TARTRATE 50 MG TABLET PO SCH (09:00)
[2018-08-01] MEDS ORDERED: HYDROXYCHLOROQUINE SULFATE 200 MG TABLET PO SCH (09:00)
[2018-08-01] MEDS ORDERED: FUROSEMIDE 20 MG TABLET PO SCH (09:00)
[2018-08-01] MEDS ORDERED: DOCUSATE SODIUM 100 MG CAPSULE PO SCH (09:00)
[2018-08-01] MEDS ORDERED: ENOXAPARIN SODIUM 30 MG, ENOXAPARIN SODIUM 60 MG SC SCH ×2 (10:00)
--- NOTE | 2018-08-01 14:35 | DS ---
(1) Chest pain Problem: Acute Qualifiers: Chest pain type: precordial pain Qualified Code(s): R07.2 - Precordial pain (2) Atrial fibrillation Problem: Resolved (3) Non-insulin dependent type 2 diabetes mellitus Problem: Chronic (4) Stage 3 chronic kidney disease Problem: Chronic (5) Angina at rest Problem: Resolved Description of Stay: Giorgio Garibay is a 77 yo wh male who presented to ER with Chest pain and SOB. He was found to be in A-fib and RVR. He converted to NSR and the chest pain went away. He is feeling like his normal self now. CArdiac screening and monitoring have not shown any injury pattern/ Troponin is neg. He remains in NSR. He willl follow up in the office in 2 weeks. I will start him on low dose betablockade. Procedures Performed: none Results and Findings: Lab Pending Results 07/31/18 19:40: WBC 4.9, RBC 3.22 L, Hgb 9.6 L, Hct 28.4 L, MCV 88.2, MCH 29.8, MCHC 33.8, RDW 15.7 H, Plt Count 148 L, MPV 9.5, Immature Gran % (Auto) 0.60 H, Immature Gran # (Auto) 0.03, Neutrophils % 73.5, Lymphocytes % 14.7 L, Monocytes % 9.0, Eosinophils % 1.8, Basophils % 0.4, Nucleated RBC % 0.0, Neutrophils # 3.6, Lymphocytes # 0.72 L, Monocytes # 0.4, Eosinophils # 0.1, Absolute Basophils 0.0 07/31/18 19:40: Sodium 144 H, Plasma Sodium 146 H, Potassium 4.2 D, Chloride 109 H, Carbon Dioxide 17.7 L, Anion Gap 21.5 H, BUN 30 H, Creatinine 1.68 H, Est GFR (Non-Af Amer) 42 L, BUN/Creatinine Ratio 17.9, Random Glucose 215 H, Calcium 9.3, Calcium Adj for Albumin 9.1, Total Bilirubin 0.9, AST 17, ALT 8 L, Alkaline Phosphatase 73, Troponin I Less than 0.017, Total Protein 6.9, Albumin 3.8 07/31/18 19:40: PT 11.4 H, INR (Anticoag Therapy) 1.16 H, PTT ([place]is[place]) 25.3 08/01/18 01:45: Troponin I 0.065 08/01/18 07:40: Sodium 141, Plasma Sodium 142, Potassium 4.0, Chloride 111 H, Carbon Dioxide 17.2 L, Anion Gap 16.8 H, BUN 35 H, Creatinine 1.80 H, Est GFR (Non-Af Amer) 39 L, BUN/Creatinine Ratio 19.4, Random Glucose 154 H, Calcium 8.2 Discharge Location: Home Disposition: Home self-care Condition: Stable Discharge Activity: Activity as tolerated Discharge Diet: General/regular food Referrals: Kaushal Ford DO [Primary Care Provider] - Additional Patient Instructions (free text): -Please make TCM appointment unless alf discharge. Thank you! Kadie @ [phone]. Prescriptions (Any new or edited meds): Metoprolol Tartrate [Lopressor] 50 mg PO BID #60 tablet Complete Home Medications List: Complete Home Medication List: Hydroxychloroquine Sulfate [Plaquenil] 400 mg PO DAILY 09/03/14 Vitamin B Complex [B Complex] 500 mcg PO DAILY 09/03/14 Multivitamins [Multivitamin Stuart] 1 cap PO DAILY capsule 08/23/16 Acetaminophen [Tylenol] 650 mg PO QID PRN #0 tablet 12/20/16 pravastatin 20 mg tablet 20 mg PO DAILY #30 tab 12/10/17 finasteride 5 mg tablet 5 mg PO DAILY #90 tab 03/08/18 furosemide 20 mg tablet 60 mg PO DAILY 30 Days #90 tab 04/22/18 glipizide 10 mg tablet See Rx Instructions .ROUTE .COMPLEX #30 tablet 05/29/18 Bimatoprost [Lumigan 0.01% Ophthalmic Solution] 1 drp EACHEYE HS 07/31/18 Brimonidine Tartrate/Timolol [Combigan 0.2%-0.5% Eye Drops] 5 ml OPHTHALMIC (EYE) Q12H 07/31/18 Losartan Potassium [Cozaar] 50 mg PO DAILY 07/31/18 Tamsulosin HCl [Flomax] 0.4 mg PO DAILY 07/31/18 predniSONE [Prednisone] 5 mg PO BID 07/31/18 Brimonidine Tartrate [Brimonidine 0.2% Ophthalmic Solution] 1 drop EACHEYE Q12H btl 08/01/18 Metoprolol Tartrate [Lopressor] 50 mg PO BID #60 tablet 08/01/18
[2018-08-01 17:34] VITALS: BP 165/52
[2018-08-01] MEDS ORDERED: BIMATOPROST 25 DROP BTL EACHEYE SCH (21:00)
[2018-08-01] MEDS ORDERED: SIMVASTATIN 10 MG TABLET PO SCH (21:00)
== END 2018-08-01 17:35 | disposition home or self-care (01) ==
LOC: MS 18:45 → ER 18:45 → MS 22:08
PROVIDERS: ADMIT Family Medicine; ATTEND Family Medicine
CPT/HCPCS: 36415; 71020; 71046; 80048; 80053; 84484; 85025; 85610; 85730; 93005; 96360; 96361; 96372; 99285; G0378